=== PATIENT | female | born 1940 | race Caucasian/White ===

== ENCOUNTER → 2017-02-15 | Outpatient (CLI) | payer OTHER ==
[2016-06-06 16:15] VITALS: BP 127/68
[2017-02-15 10:37] LABS: BASOPHILS % (AUTO) 0.7 % (0.2-1.0); EOSINOPHILS # (AUTO) 0.3 x10^3/uL (0.0-0.2); EOSINOPHILS % (AUTO) 4.2 % (0.9-2.9); HEMATOCRIT 36.7 % (36.0-47.0); HEMOGLOBIN 12.1 g/dL (12.0-16.0); LYMPHOCYTES # (AUTO) 1.4 X10^3/uL (1.3-2.9); LYMPHOCYTES % (AUTO) 20.2 % (21.0-51.0); MEAN CORPUSCULAR HEMOGLOBIN 31.2 pg (27.0-34.0); MEAN CORPUSCULAR HGB CONC 32.9 g/dL (33.0-35.0); MEAN CORPUSCULAR VOLUME 94.6 fL (80.0-100.0); MEAN PLATELET VOLUME 8.8 fL (7.4-11.0); MONOCYTES # (AUTO) 0.6 x10^3/uL (0.3-0.8); MONOCYTES % (AUTO) 8.1 % (0.0-13.0); NEUTROPHILS # (AUTO) 4.6 x10^3/uL (2.2-4.8); NEUTROPHILS % (AUTO) 66.8 % (42.0-75.0); PLATELET COUNT 220 X10^3/uL (150.0-450.0); RED BLOOD COUNT 3.88 X10^6/uL (3.5-5.4); RED CELL DISTRIBUTION WIDTH 12.6 % (11.6-16.5); RETICULOCYTE % 1.52 % (0.8-2.2); WHITE BLOOD COUNT 6.8 X10^3/uL (3.6-10.0)
[2017-02-15 10:39] LABS: BLOOD UREA NITROGEN 20 mg/dL (7-18); CALCIUM 8.7 mg/dL (8.5-10.1); CARBON DIOXIDE 28.1 mmol/L (21-32); CHLORIDE 107 mmol/L (98-107); COR NA(FOR HYPERGLY) 145 mmol/L (136-145); GLUCOSE 179 mg/dL (65-99); SODIUM 143 mmol/L (136-145); eGFR BLACK RACES > 60 (>60); eGFR NON BLACK RACES 58 (>60)
[2017-02-18 06:43] LABS: METHYLMALONIC ACID 0.46 umol/L (0.00-0.40)
== END ==
LOC: LAB 09:50
PROVIDERS: ATTEND Nurse Practitioner Family
DX: I10 Essential (primary) hypertension (principal); D64.9 Anemia, unspecified; E11.9 Type 2 diabetes mellitus without complications; Z79.899 Other long term (current) drug therapy
CPT/HCPCS: 36415; 80048; 82607; 82615; 82746; 83036; 83918; 85025; 85045; 86256; 86340

== ENCOUNTER → 2017-05-05 | Outpatient (CLI) | payer OTHER ==
[2016-06-06 16:15] VITALS: BP 127/68
[2017-05-05 12:14] LABS: BASOPHILS % (AUTO) 0.5 % (0.2-1.0); EOSINOPHILS # (AUTO) 0.4 x10^3/uL (0.0-0.2); EOSINOPHILS % (AUTO) 4.7 % (0.9-2.9); HEMATOCRIT 33.2 % (36.0-47.0); HEMOGLOBIN 11.5 g/dL (12.0-16.0); LYMPHOCYTES % (AUTO) 12.4 % (21.0-51.0); MEAN CORPUSCULAR HEMOGLOBIN 32.7 pg (27.0-34.0); MEAN CORPUSCULAR HGB CONC 34.6 g/dL (33.0-35.0); MEAN CORPUSCULAR VOLUME 94.5 fL (80.0-100.0); MEAN PLATELET VOLUME 8.4 fL (7.4-11.0); MONOCYTES # (AUTO) 0.7 x10^3/uL (0.3-0.8); MONOCYTES % (AUTO) 8.2 % (0.0-13.0); NEUTROPHILS # (AUTO) 6.2 x10^3/uL (2.2-4.8); NEUTROPHILS % (AUTO) 74.2 % (42.0-75.0); PLATELET COUNT 222 X10^3/uL (150.0-450.0); RED BLOOD COUNT 3.52 X10^6/uL (3.5-5.4); RED CELL DISTRIBUTION WIDTH 12.3 % (11.6-16.5); WHITE BLOOD COUNT 8.3 X10^3/uL (3.6-10.0)
[2017-05-05 12:27] LABS: ALBUMIN 3.5 g/dL (3.4-5.0); BLOOD UREA NITROGEN 32 mg/dL (7-18); CALCIUM 8.8 mg/dL (8.5-10.1); CARBON DIOXIDE 22.7 mmol/L (21-32); CHLORIDE 108 mmol/L (98-107); COR NA(FOR HYPERGLY) 143 mmol/L (136-145); CREATININE 0.99 mg/dL (0.55-1.02); GLUCOSE 151 mg/dL (65-99); SODIUM 142 mmol/L (136-145); URIC ACID 6.1 mg/dL (2.6-6.0); eGFR BLACK RACES > 60 (>60); eGFR NON BLACK RACES 58 (>60)
[2017-05-10 05:54] LABS: ALDOSTERONE 9.3 ng/dL
[2017-05-10 05:55] LABS: RENIN ACTIVITY 1.2 ng/mL/hr
[2017-05-11 06:27] LABS: METANEPHRINE < 0.10; NORMETANEPHRINE 0.75
== END ==
LOC: LAB 11:47
PROVIDERS: ATTEND Internal Medicine
DX: I12.9 Hypertensive chronic kidney disease with stage 1 through stage 4 chronic kidney disease, or unspecified chronic kidney disease (principal); N18.3 Chronic kidney disease, stage 3 (moderate)
CPT/HCPCS: 36415; 80069; 82088; 83835; 84244; 84550; 85025

== ENCOUNTER → 2017-05-18 | Outpatient (CLI) | payer OTHER ==
[2016-06-06 16:15] VITALS: BP 127/68
[2017-05-18 10:36] LABS: HEMOGLOBIN A1C 7.3 % (4.5-6.2)
[2017-05-18 10:40] LABS: CHOL/HDL RATIO 3.1 (0.0-5.0); CHOLESTEROL 127 mg/dL (0-200); HDL CHOLESTEROL 41 mg/dL (40-60); TRIGLYCERIDES 113 mg/dL (0-150)
== END ==
LOC: LAB 09:47
PROVIDERS: ATTEND Nurse Practitioner Family
DX: E11.69 Type 2 diabetes mellitus with other specified complication (principal); D64.89 Other specified anemias; D51.0 Vitamin B12 deficiency anemia due to intrinsic factor deficiency
CPT/HCPCS: 36415; 80061; 82607; 83036; 83918

== ENCOUNTER 2017-07-24 14:14 | Inpatient (IN) | payer OTHER ==
--- NOTE | 2017-07-24 14:33 | DR.GENAD ---
HPI - PCP Primary Care Physician: JUANCHO - Complaint/Symptoms Chief Complaint:: PATIENT STATED SHE HAS BEEN VOMITING SINCE LAST NIGHT. SHE STATED IT LOOKED BLACK AND TARY. - Nurses notes reviewed Nurses Notes Review: Yes - Source History Provided: Patient - Mode of Arrival Mode of Arrival: EMS - Timing Onset of Chief Complaint: 07/23/17 - Severity Severity: Moderate PMH - PMH Past Medical History: Yes Past Medical History: Diabetes, Dyslipidemia, Hypertension Past Surgical History: No Surgical History: Cholecystectomy - Family History History of Family Medical Conditions: No Family Medical History: Diabetes Mellitus, [place], Heart Failure, Hypertension - Social History Does patient currently use any type of tobacco product: No Have you used tobacco products in the last 12 months: No Type of Tobacco Use: None Does any household member use tobacco: No Alcohol Use: None Do you use any recreational Drugs:: No Lives With: Family Lives Where: Home - infectious screening In the last 2 months have you had wt loss of >10#?: NO Have you had fever, night sweats or hemotysis?: No Have you traveled outside the country in the last 6 months?: No Isolation: Standard PE - Vital Signs Vitals: Temperature 97.9 F Pulse Rate [Standing] 51 Pulse Rate [Sitting] 67 Pulse Rate [Lying] 66 Pulse Rate 64 Respiratory Rate 16 Blood Pressure [Right Arm] 127/68 Blood Pressure [Left Arm] 110/51 Blood Pressure [Standing] 75/47 Blood Pressure [Sitting] 94/58 Blood Pressure [Lying] 110/58 Blood Pressure 126/58 O2 Sat by Pulse Oximetry 98 ROR - Labs Reviewed Result Diagrams: 07/24/17 14:40 07/24/17 14:40 Laboratory: WBC 6.6 X10^3/uL (3.6-10.0) 07/24/17 14:40 RBC 3.32 X10^6/uL (3.5-5.4) L 07/24/17 14:40 Hgb 10.7 g/dL (12.0-16.0) L 07/24/17 14:40 Hct 31.6 % (36.0-47.0) L 07/24/17 14:40 MCV 95.1 fL (80.0-100.0) 07/24/17 14:40 MCH 32.2 pg (27.0-34.0) 07/24/17 14:40 MCHC 33.8 g/dL (33.0-35.0) 07/24/17 14:40 RDW 12.6 % (11.6-16.5) 07/24/17 14:40 Plt Count 185 X10^3/uL (150.0-450.0) 07/24/17 14:40 MPV 8.4 fL (7.4-11.0) 07/24/17 14:40 Neut % 71.5 % (42.0-75.0) 07/24/17 14:40 Lymph % 18.6 % (21.0-51.0) L 07/24/17 14:40 [place] % 7.9 % (0.0-13.0) 07/24/17 14:40 Eos % 1.5 % (0.9-2.9) 07/24/17 14:40 Baso % 0.5 % (0.2-1.0) 07/24/17 14:40 Neut # 4.7 x10^3/uL (2.2-4.8) 07/24/17 14:40 Lymph # 1.2 X10^3/uL (1.3-2.9) L 07/24/17 14:40 [place] # 0.5 x10^3/uL (0.3-0.8) 07/24/17 14:40 Eos # 0.1 x10^3/uL (0.0-0.2) 07/24/17 14:40 Baso # 0.0 X10^3/uL (0.0-0.1) 07/24/17 14:40 Absolute Nucleated RBC 0.0 /100WBC 07/24/17 14:40 Sodium 142 mmol/L (136-145) 07/24/17 14:40 Corrected Sodium TNP 07/24/17 14:40 Potassium 5.2 mmol/L (3.5-5.1) H 07/24/17 14:40 Chloride 109 mmol/L (98-107) H 07/24/17 14:40 Carbon Dioxide 24.5 mmol/L (21-32) 07/24/17 14:40 BUN 35 mg/dL (7-18) H 07/24/17 14:40 Creatinine 1.85 mg/dL (0.55-1.02) H 07/24/17 14:40 Est GFR (MDRD) Af Amer 34 (>60) L 07/24/17 14:40 Est GFR (MDRD) Non-Af 28 (>60) L 07/24/17 14:40 Glucose 58 mg/dL (65-99) L 07/24/17 14:40 Calcium 8.3 mg/dL (8.5-10.1) L 07/24/17 14:40 Corrected Calcium 8.9 mg/dL (8.5-10.1) 07/24/17 14:40 Total Bilirubin 0.40 mg/dL (0.2-1.0) 07/24/17 14:40 AST 17 Units/L (15-37) 07/24/17 14:40 ALT 26 Units/L (12-78) 07/24/17 14:40 Alkaline Phosphatase 60 Units/L (46-116) 07/24/17 14:40 Creatine Kinase 46 Units/L (26-192) 07/24/17 14:40 CK-MB (CK-2) < 1.0 ng/mL (0-4.0) 07/24/17 14:40 CK/CKMB % Calc 2.2 % (<4) 07/24/17 14:40 Troponin I < 0.02 ng/mL (0-1.5) 07/24/17 14:40 Total Protein 6.8 g/dL (6.4-8.2) 07/24/17 14:40 Albumin 3.3 g/dL (3.4-5.0) L 07/24/17 14:40 Globulin 3.5 g/dL (2.5-4.5) 07/24/17 14:40 Albumin/Globulin Ratio 0.9 Ratio (1.1-2.1) L 07/24/17 14:40 Stool Description Ifob collection tube 07/24/17 16:53 Stl Occult Blood (IFOB) Negative (NEGATIVE) 07/24/17 16:53 - Discharge Plan Condition: Stable - Follow ups/Referrals Follow ups/Referrals: RODRI DAWKINS [Primary Care Provider] - 3 days - Instructions
[2017-07-24 14:50] LABS: BASOPHILS % (AUTO) 0.5 % (0.2-1.0); EOSINOPHILS # (AUTO) 0.1 x10^3/uL (0.0-0.2); EOSINOPHILS % (AUTO) 1.5 % (0.9-2.9); HEMATOCRIT 31.6 % (36.0-47.0); HEMOGLOBIN 10.7 g/dL (12.0-16.0); LYMPHOCYTES # (AUTO) 1.2 X10^3/uL (1.3-2.9); LYMPHOCYTES % (AUTO) 18.6 % (21.0-51.0); MEAN CORPUSCULAR HEMOGLOBIN 32.2 pg (27.0-34.0); MEAN CORPUSCULAR HGB CONC 33.8 g/dL (33.0-35.0); MEAN CORPUSCULAR VOLUME 95.1 fL (80.0-100.0); MEAN PLATELET VOLUME 8.4 fL (7.4-11.0); MONOCYTES # (AUTO) 0.5 x10^3/uL (0.3-0.8); MONOCYTES % (AUTO) 7.9 % (0.0-13.0); NEUTROPHILS # (AUTO) 4.7 x10^3/uL (2.2-4.8); NEUTROPHILS % (AUTO) 71.5 % (42.0-75.0); PLATELET COUNT 185 X10^3/uL (150.0-450.0); RED BLOOD COUNT 3.32 X10^6/uL (3.5-5.4); RED CELL DISTRIBUTION WIDTH 12.6 % (11.6-16.5); WHITE BLOOD COUNT 6.6 X10^3/uL (3.6-10.0)
[2017-07-24 15:06] LABS: BLOOD UREA NITROGEN 35 mg/dL (7-18); CALCIUM 8.3 mg/dL (8.5-10.1); CARBON DIOXIDE 24.5 mmol/L (21-32); CHLORIDE 109 mmol/L (98-107); CREATININE 1.85 mg/dL (0.55-1.02); GLUCOSE 58 mg/dL (65-99); SODIUM 142 mmol/L (136-145); TROPONIN I < 0.02 ng/mL (0-1.5); eGFR BLACK RACES 34 (>60); eGFR NON BLACK RACES 28 (>60)
[2017-07-24 15:11] LABS: ALANINE AMINOTRANSFERASE 26 Units/L (12-78); ALBUMIN 3.3 g/dL (3.4-5.0); ALKALINE PHOSPHATASE 60 Units/L (46-116); ASPARTATE AMINO TRANSFERASE 17 Units/L (15-37); COR CA(FOR HYPOALB) 8.9 mg/dL (8.5-10.1); CREATINE KINASE 46 Units/L (26-192); CREATINE KINASE MB < 1.0 ng/mL (0-4.0); TOTAL PROTEIN 6.8 g/dL (6.4-8.2)
[2017-07-24 15:14] LABS: CKMB % 2.2 % (<4)
--- NOTE | 2017-07-24 15:36 | RAD ---
HISTORY: Nausea, vomiting Study: Single-view chest Comparison: June 06, 2016 Findings: There is aortic atherosclerosis. The patient is rotated. There are low lung volumes with mild chronic elevation of the left hemidiaphragm. The cardiac silhouette is unremarkable. The lungs are clear w ithout focal mass or consolidation. There is no effusion or pneumothorax. The bony thorax is grossl y unremarkable. IMPRESSION: No acute cardiopulmonary disease. Reported By:
[2017-07-24] MEDS ORDERED: NS 1000 ML 1,000 ML ONE (15:44)
[2017-07-24] MEDS ORDERED: NS 1000 ML 1,000 ML IV ONE (15:45)
[2017-07-24] MEDS ORDERED: NS 100 ML IV 100 ML IV ONE (16:56)
[2017-07-24] MEDS ORDERED: PROTONIX INJ 40 MG VIAL ONE (16:56)
[2017-07-24 20:55] LABS: CREATINE KINASE 43 Units/L (26-192); CREATINE KINASE MB < 1.0 ng/mL (0-4.0); TROPONIN I < 0.02 ng/mL (0-1.5)
[2017-07-24 21:03] LABS: CKMB % 2.3 % (<4)
[2017-07-24 21:05] VITALS: BMI 27.6
[2017-07-24] MEDS: NS 1000 ML 1,000 ML IV SCH (21:57)
[2017-07-24 22:30] LABS: BILIRUBIN,URINE 1+ (NEGATIVE); BLOOD/HEMOGLOBIN,URINE 1+ (NEGATIVE); GLUCOSE, URINE NEGATIVE (NEGATIVE); KETONES,URINE 1+ (NEGATIVE); LEUKOCYTE ESTERASE ,URINE 3+ (NEGATIVE); NITRITES,URINE NEGATIVE (NEGATIVE); PROTEIN,URINE NEGATIVE (NEGATIVE); UROBILINOGEN,URINE 1+ (NORMAL)
[2017-07-24 23:17] LABS: APPEARANCE,URINE SLIGHTLY HAZY (CLEAR); BACTERIA,URINE TRACE /HPF (NEGATIVE); COLOR,URINE YELLOW (YELLOW); HYALINE CASTS, URINE FEW /LPF (NEGATIVE); RBC,URINE 0-3 /HPF (NEGATIVE); SQUAMOUS EPITHELIAL CELL,UR MODERATE /HPF (NEGATIVE)
[2017-07-25] MEDS: PROTONIX INJ 40 MG VIAL 80 MG in NS 100 ML IV 80 ML IV SCH ×4 (01:33→12:10)
[2017-07-25] MEDS: NS 1000 ML 1,000 ML IV SCH ×4 (01:33→19:51)
[2017-07-25 04:58] LABS: ALANINE AMINOTRANSFERASE 23 Units/L (12-78); ALBUMIN 2.9 g/dL (3.4-5.0); ALKALINE PHOSPHATASE 55 Units/L (46-116); ASPARTATE AMINO TRANSFERASE 16 Units/L (15-37); BLOOD UREA NITROGEN 27 mg/dL (7-18); CALCIUM 7.7 mg/dL (8.5-10.1); CARBON DIOXIDE 25.1 mmol/L (21-32); CHLORIDE 111 mmol/L (98-107); CKMB % 2.3 % (<4); COR CA(FOR HYPOALB) 8.6 mg/dL (8.5-10.1); COR NA(FOR HYPERGLY) 144 mmol/L (136-145); CREATINE KINASE 44 Units/L (26-192); CREATINE KINASE MB < 1.0 ng/mL (0-4.0); GLUCOSE 185 mg/dL (65-99); SODIUM 142 mmol/L (136-145); TOTAL PROTEIN 6.2 g/dL (6.4-8.2); TROPONIN I < 0.02 ng/mL (0-1.5); eGFR BLACK RACES 51 (>60); eGFR NON BLACK RACES 42 (>60)
[2017-07-25 05:12] LABS: BASOPHILS % (AUTO) 0.7 % (0.2-1.0); EOSINOPHILS # (AUTO) 0.1 x10^3/uL (0.0-0.2); EOSINOPHILS % (AUTO) 2.4 % (0.9-2.9); HEMOGLOBIN 10.1 g/dL (12.0-16.0); LYMPHOCYTES # (AUTO) 1.4 X10^3/uL (1.3-2.9); LYMPHOCYTES % (AUTO) 28.2 % (21.0-51.0); MEAN CORPUSCULAR HEMOGLOBIN 32.4 pg (27.0-34.0); MEAN CORPUSCULAR HGB CONC 33.7 g/dL (33.0-35.0); MEAN CORPUSCULAR VOLUME 96.3 fL (80.0-100.0); MEAN PLATELET VOLUME 9.2 fL (7.4-11.0); MONOCYTES # (AUTO) 0.4 x10^3/uL (0.3-0.8); MONOCYTES % (AUTO) 8.6 % (0.0-13.0); NEUTROPHILS % (AUTO) 60.1 % (42.0-75.0); PLATELET COUNT 159 X10^3/uL (150.0-450.0); RED BLOOD COUNT 3.12 X10^6/uL (3.5-5.4); RED CELL DISTRIBUTION WIDTH 12.6 % (11.6-16.5)
[2017-07-25] MEDS ORDERED: ROCEPHIN VIAL 1 GM ONE (15:40)
[2017-07-25] MEDS ORDERED: NS 50 ML IV + SPIKE MINIBAG* 50 ML IV ONE (15:40)
[2017-07-25] MEDS: ROCEPHIN VIAL 1 GM 1 GM in NS 50 ML IV + SPIKE MINIBAG* 50 ML IV SCH (15:42)
[2017-07-25] MEDS: NORMODYNE INJ 20 MG VIAL IVP PRN ×2 (20:08→20:44)
[2017-07-26] MEDS: NS 1000 ML 1,000 ML IV SCH (04:09)
[2017-07-26] MEDS: NORMODYNE INJ 20 MG VIAL IVP PRN (04:09)
[2017-07-26 05:41] LABS: ALANINE AMINOTRANSFERASE 25 Units/L (12-78); ALBUMIN 3.5 g/dL (3.4-5.0); ALKALINE PHOSPHATASE 65 Units/L (46-116); ASPARTATE AMINO TRANSFERASE 18 Units/L (15-37); BLOOD UREA NITROGEN 10 mg/dL (7-18); CALCIUM 8.4 mg/dL (8.5-10.1); CARBON DIOXIDE 25.2 mmol/L (21-32); CHLORIDE 109 mmol/L (98-107); COR NA(FOR HYPERGLY) 143 mmol/L (136-145); CREATININE 0.91 mg/dL (0.55-1.02); GLUCOSE 118 mg/dL (65-99); SODIUM 143 mmol/L (136-145); TOTAL PROTEIN 7.2 g/dL (6.4-8.2); eGFR BLACK RACES > 60 (>60); eGFR NON BLACK RACES > 60 (>60)
[2017-07-26 05:53] LABS: BASOPHILS % (AUTO) 0.7 % (0.2-1.0); EOSINOPHILS # (AUTO) 0.3 x10^3/uL (0.0-0.2); EOSINOPHILS % (AUTO) 4.2 % (0.9-2.9); HEMATOCRIT 35.9 % (36.0-47.0); HEMOGLOBIN 11.9 g/dL (12.0-16.0); LYMPHOCYTES # (AUTO) 1.6 X10^3/uL (1.3-2.9); LYMPHOCYTES % (AUTO) 26.8 % (21.0-51.0); MEAN CORPUSCULAR HEMOGLOBIN 32.1 pg (27.0-34.0); MEAN CORPUSCULAR HGB CONC 33.3 g/dL (33.0-35.0); MEAN CORPUSCULAR VOLUME 96.4 fL (80.0-100.0); MEAN PLATELET VOLUME 9.6 fL (7.4-11.0); MONOCYTES # (AUTO) 0.7 x10^3/uL (0.3-0.8); MONOCYTES % (AUTO) 11.9 % (0.0-13.0); NEUTROPHILS # (AUTO) 3.5 x10^3/uL (2.2-4.8); NEUTROPHILS % (AUTO) 56.4 % (42.0-75.0); PLATELET COUNT 158 X10^3/uL (150.0-450.0); RED BLOOD COUNT 3.72 X10^6/uL (3.5-5.4); RED CELL DISTRIBUTION WIDTH 12.6 % (11.6-16.5); WHITE BLOOD COUNT 6.1 X10^3/uL (3.6-10.0)
[2017-07-26] MEDS: ROCEPHIN VIAL 1 GM 1 GM in NS 50 ML IV + SPIKE MINIBAG* 50 ML IV SCH (08:51)
[2017-07-26] MEDS ORDERED: PROTONIX TAB 40 MG PO SCH (09:00)
[2017-07-26 09:27] VITALS: BP 182/88
[2017-07-26] MEDS ORDERED: VASOTEC TAB 5 MG PO SCH (10:00)
== END 2017-07-26 10:15 | disposition home or self-care (01) | DRG 315 ==
LOC: ER 14:35 → MED/SURG 17:46
PROVIDERS: ADMIT Internal Medicine; ATTEND Internal Medicine
DX: I95.89 Other hypotension (principal); K92.2 Gastrointestinal hemorrhage, unspecified; E78.2 Mixed hyperlipidemia; I10 Essential (primary) hypertension; R11.2 Nausea with vomiting, unspecified; R94.31 Abnormal electrocardiogram [ECG] [EKG]; N39.0 Urinary tract infection, site not specified; K21.9 Gastro-esophageal reflux disease without esophagitis; E11.69 Type 2 diabetes mellitus with other specified complication
CPT/HCPCS: 36415; 71010; 80053; 81001; 82270; 82550; 82553; 82947; 84484; 85025; 87086; 93005; 93010; 94760; 96365; 99231; 99284; A4222; C9113; J0696; J3490

== ENCOUNTER 2017-07-27 20:36 | Emergency (ER) | payer OTHER ==
[2017-07-27 20:44] VITALS: BMI 29.2
--- NOTE | 2017-07-27 21:14 | DR.GENAD ---
HPI - PCP Primary Care Physician: JUANCHO - Complaint/Symptoms Chief Complaint Doctors Comments: Denies symptoms at this time. BP found low when TECHNICAL CONSULTANT checked blood pressure. Chief Complaint:: LOW BLOOD PRESSURE - Nurses notes reviewed Nurses Notes Review: Yes - Source History Provided: Patient - Mode of Arrival Mode of Arrival: Ambulatory - Timing Onset of Chief Complaint: 07/27/17 Came on: Gradually - Duration Duration: Constant Duration: Hours - Location Location: generalized - Severity Severity: Mild - Modifying Factors Worsens:: BP meds - Associated Signs and Symptoms Associated Signs and Symptoms: none <ELÍAS ALFRED - Last Filed: 07/27/17 22:01> PMH - PMH Past Medical History: Yes Past Medical History: Diabetes, Dyslipidemia, Hypertension Past Surgical History: Yes Surgical History: Cholecystectomy - Family History History of Family Medical Conditions: Yes Family Medical History: Diabetes Mellitus, [place], Heart Failure, Hypertension - Social History Does patient currently use any type of tobacco product: No Have you used tobacco products in the last 12 months: No Type of Tobacco Use: None Does any household member use tobacco: No Alcohol Use: None Do you use any recreational Drugs:: No Lives With: Family Lives Where: Home - infectious screening In the last 2 months have you had wt loss of >10#?: NO Have you had fever, night sweats or hemotysis?: No Have you traveled outside the country in the last 6 months?: No Isolation: Standard <ELÍAS ALFRED - Last Filed: 07/27/17 22:01> ROS - Review of Systems Constitutional: No Symptoms Reported Eyes: No Symptoms Reported ENTM: No Symptoms Reported Respiratoy: No Symptoms Reported Cardiovascular: No Symptoms Reported Gastrointestinal/Abdominal: No Symptoms Reported Genitourinary: No Symptoms Reported Neurological: No Symptoms Reported Musculoskeletal: No Symptoms Reported Integumentary: No Symptoms Reported Hematologic/Lymphatic: No Symptoms Reported Endocrine: No Symptoms Reported Psychiatric: No Symptoms Reported All Other Systems: Reviewed and Negative <ELÍAS ALFRED - Last Filed: 07/27/17 22:01> PE - General Limitations: No Limitations General Appearance: Alert, In No Apparent Distress - Head Head Exam: Normal Inspection - Eyes Eye exam: Normal Appearance, EOMI. negative: Scleral Icterus, Conjunctival Injection - ENT ENT Exam: Normal Exam - Neck Neck Exam: Normal Inspection, Full ROM, Trachea Midline - Chest Chest Inspection: Normal Inspection, Symmetric Chest Wall Rise - Respiratory Respiratory Exam: Normal Lung Sounds Bilat. negative: Accessory Muscle Use, Respiratory Distress Respiratory Exam: Bilateral Clear to Auscultation - Cardiovascular Cardiovascular Exam: Regular Rate - Extremities Extremities Exam: Normal Inspection, Full ROM - Neurologic Neurological Exam: Alert, Oriented X3, CN II-XII Intact - Psychiatric Psychiatric Exam: Normal Affect - Skin Skin Exam: Intact, Normal Color <ELÍAS ALFRED - Last Filed: 07/27/17 22:01> - Vital Signs Vitals: Temperature 97.5 F Pulse Rate 92 Respiratory Rate 16 Blood Pressure [Right Arm] 180/90 Blood Pressure [Left Arm] 144/76 Blood Pressure [Standing] 75/47 Blood Pressure [Sitting] 94/58 Blood Pressure [Lying] 110/58 Blood Pressure 88/64 O2 Sat by Pulse Oximetry 97 ROR - Labs Reviewed Result Diagrams: 07/27/17 21:18 <ELÍAS ALFRED - Last Filed: 07/27/17 22:01> - Labs Reviewed Result Diagrams: 07/27/17 21:18 <ILENE MACIEL - Last Filed: 07/27/17 23:40> - Labs Reviewed Laboratory: Sodium 142 mmol/L (136-145) 07/27/17 21:18 Corrected Sodium 144 mmol/L (136-145) 07/27/17 21:18 Potassium 4.3 mmol/L (3.5-5.1) 07/27/17 21:18 Chloride 106 mmol/L (98-107) 07/27/17 21:18 Carbon Dioxide 23.5 mmol/L (21-32) 07/27/17 21:18 BUN 22 mg/dL (7-18) H 07/27/17 21:18 Creatinine 2.25 mg/dL (0.55-1.02) H 07/27/17 21:18 Est GFR (MDRD) Af Amer 27 (>60) L 07/27/17 21:18 Est GFR (MDRD) Non-Af 23 (>60) L 07/27/17 21:18 Glucose 183 mg/dL (65-99) H 07/27/17 21:18 Calcium 8.5 mg/dL (8.5-10.1) 07/27/17 21:18 Specimen Type Clean catch urine 07/27/17 22:40 Urine Color Dark yellow (YELLOW) 07/27/17 22:40 Urine Appearance Slightly hazy (CLEAR) 07/27/17 22:40 Urine pH 5.0 (5.0 - 8.0) 07/27/17 22:40 Ur Specific [place] 1.025 (1.000-1.030) 07/27/17 22:40 Urine Protein 2+ (NEGATIVE) 07/27/17 22:40 Urine Glucose (UA) Negative (NEGATIVE) 07/27/17 22:40 Urine Ketones 1+ (NEGATIVE) 07/27/17 22:40 Urine Occult Blood Negative (NEGATIVE) 07/27/17 22:40 Urine Nitrite Negative (NEGATIVE) 07/27/17 22:40 Urine Bilirubin 1+ (NEGATIVE) 07/27/17 22:40 Urine Urobilinogen 1+ (NORMAL) 07/27/17 22:40 Ur Leukocyte Esterase 2+ (NEGATIVE) 07/27/17 22:40 Urine RBC None seen /HPF (NEGATIVE) 07/27/17 22:40 Urine WBC 8-10 /HPF (NEGATIVE) 07/27/17 22:40 Ur Squamous Epith Cells Rare /HPF (NEGATIVE) 07/27/17 22:40 Urine Bacteria 1+ /HPF (NEGATIVE) 07/27/17 22:40 Hyaline Casts Few /LPF (NEGATIVE) 07/27/17 22:40 Ur Culture Indicated? Yes/culture set up 07/27/17 22:40 <ELÍAS ALFRED - Last Filed: 07/27/17 22:01> <ILENE MACIEL - Last Filed: 07/27/17 23:40> - Diagnosis Discharge Problem: Hypotension, unspecified Qualifiers: Hypotension type: unspecified hypotension type Qualified Code(s): I95.9 - Hypotension, unspecified - Discharge Plan Condition: Stable - Follow ups/Referrals Follow ups/Referrals: RODRI DAWKINS [Primary Care Provider] - 3 days - Instructions
[2017-07-27 21:32] LABS: CALCIUM 8.5 mg/dL (8.5-10.1); CARBON DIOXIDE 23.5 mmol/L (21-32); CREATININE 2.25 mg/dL (0.55-1.02)
[2017-07-27] MEDS ORDERED: NS 500 ML IV 500 ML IV ONE (21:45)
[2017-07-27] MEDS ORDERED: NS 1000 ML 1,000 ML ONE (21:53)
[2017-07-27 22:50] LABS: BILIRUBIN,URINE 1+ (NEGATIVE); BLOOD/HEMOGLOBIN,URINE NEGATIVE (NEGATIVE); GLUCOSE, URINE NEGATIVE (NEGATIVE); KETONES,URINE 1+ (NEGATIVE); LEUKOCYTE ESTERASE ,URINE 2+ (NEGATIVE); NITRITES,URINE NEGATIVE (NEGATIVE); PROTEIN,URINE 2+ (NEGATIVE); UROBILINOGEN,URINE 1+ (NORMAL)
[2017-07-27 22:57] LABS: APPEARANCE,URINE SLIGHTLY HAZY (CLEAR); BACTERIA,URINE 1+ /HPF (NEGATIVE); COLOR,URINE DARK YELLOW (YELLOW); HYALINE CASTS, URINE FEW /LPF (NEGATIVE); RBC,URINE NONE SEEN /HPF (NEGATIVE); SQUAMOUS EPITHELIAL CELL,UR RARE /HPF (NEGATIVE)
[2017-07-27 23:01] VITALS: BP 144/76
== END 2017-07-27 23:59 | disposition home or self-care (01) ==
LOC: ER 20:48
DX: I95.9 Hypotension, unspecified (principal)
CPT/HCPCS: 36415; 80048; 81001; 87086; 96365; 96367; 99283; A4222

== ENCOUNTER → 2017-07-29 | Outpatient (CLI) | payer OTHER ==
[2017-07-27 23:01] VITALS: BP 144/76
[2017-07-29 10:39] LABS: BASOPHILS % (AUTO) 0.8 % (0.2-1.0); EOSINOPHILS # (AUTO) 0.2 x10^3/uL (0.0-0.2); EOSINOPHILS % (AUTO) 4.5 % (0.9-2.9); HEMATOCRIT 33.5 % (36.0-47.0); HEMOGLOBIN 11.2 g/dL (12.0-16.0); LYMPHOCYTES # (AUTO) 1.4 X10^3/uL (1.3-2.9); LYMPHOCYTES % (AUTO) 27.1 % (21.0-51.0); MEAN CORPUSCULAR HEMOGLOBIN 31.8 pg (27.0-34.0); MEAN CORPUSCULAR HGB CONC 33.6 g/dL (33.0-35.0); MEAN CORPUSCULAR VOLUME 94.8 fL (80.0-100.0); MEAN PLATELET VOLUME 8.9 fL (7.4-11.0); MONOCYTES # (AUTO) 0.4 x10^3/uL (0.3-0.8); MONOCYTES % (AUTO) 7.9 % (0.0-13.0); NEUTROPHILS # (AUTO) 3.1 x10^3/uL (2.2-4.8); NEUTROPHILS % (AUTO) 59.7 % (42.0-75.0); PLATELET COUNT 186 X10^3/uL (150.0-450.0); RED BLOOD COUNT 3.53 X10^6/uL (3.5-5.4); RED CELL DISTRIBUTION WIDTH 12.7 % (11.6-16.5); WHITE BLOOD COUNT 5.1 X10^3/uL (3.6-10.0)
[2017-07-29 10:47] LABS: HEMOGLOBIN A1C 7.1 % (4.5-6.2)
[2017-07-29 10:51] LABS: ALBUMIN 3.5 g/dL (3.4-5.0); BLOOD UREA NITROGEN 24 mg/dL (7-18); C-REACTIVE PROTEIN < 0.50 mg/L (0-3.0); CALCIUM 8.5 mg/dL (8.5-10.1); CARBON DIOXIDE 26.7 mmol/L (21-32); CHLORIDE 107 mmol/L (98-107); CHOL/HDL RATIO 2.9 (0.0-5.0); CHOLESTEROL 116 mg/dL (0-200); COR NA(FOR HYPERGLY) 141 mmol/L (136-145); CREATININE 1.31 mg/dL (0.55-1.02); HDL CHOLESTEROL 40 mg/dL (40-60); PHOSPHORUS 3.4 mg/dL (2.6-4.7); SODIUM 140 mmol/L (136-145); TRIGLYCERIDES 95 mg/dL (0-150); URIC ACID 7.2 mg/dL (2.6-6.0); eGFR BLACK RACES 51 (>60); eGFR NON BLACK RACES 42 (>60)
[2017-07-29 10:54] LABS: CREATININE,URINE 170.16 mg/dL (29-226); MICROALBUMIN,URINE 7.8 mg/L
[2017-07-29 10:55] LABS: IRON 69 ug/dL (50-175); TOTAL IRON BINDING CAPACITY 261 ug/dL (250-450)
[2017-07-29 11:19] LABS: ERYTHROCYTE SEDIMENTATION RATE 87 MM/HOUR (0-20)
== END | disposition home or self-care (01) ==
LOC: LAB 10:15
PROVIDERS: ATTEND Nurse Practitioner Family
DX: N18.9 Chronic kidney disease, unspecified (principal); I12.9 Hypertensive chronic kidney disease with stage 1 through stage 4 chronic kidney disease, or unspecified chronic kidney disease; D64.89 Other specified anemias; M17.0 Bilateral primary osteoarthritis of knee; E11.21 Type 2 diabetes mellitus with diabetic nephropathy; R94.4 Abnormal results of kidney function studies; E11.65 Type 2 diabetes mellitus with hyperglycemia; R82.99 Other abnormal findings in urine
CPT/HCPCS: 36415; 80061; 80069; 82043; 83036; 83540; 83550; 84550; 85025; 85652; 86140

== ENCOUNTER 2017-09-10 15:40 | Emergency (ER) | payer OTHER ==
[2017-09-10 15:52] VITALS: BMI 27.6
--- NOTE | 2017-09-10 16:51 | DR.GENAD ---
HPI - PCP Primary Care Physician: Padilla - Complaint/Symptoms Chief Complaint Doctors Comments: Review of record shows that patient had prerenal failure. She is followed by a electro optics engineer. Chief Complaint:: "I fell earlier today and also about 3 weeks ago. It usually happens when I bend over for something. I just want to figure out why I keep falling. I have a tendancy of getting dehydrated, so I wanted to make sure that wasn't what was going on." - Source History Provided: Patient - Mode of Arrival Mode of Arrival: Ambulatory - Timing Onset of Chief Complaint: 09/10/17 PMH - PMH Past Medical History: Yes Past Medical History: Diabetes, Dyslipidemia, Hypertension Past Surgical History: Yes Surgical History: Cholecystectomy - Family History History of Family Medical Conditions: Yes Family Medical History: Diabetes Mellitus, [place], Heart Failure, Hypertension - Social History Does patient currently use any type of tobacco product: No Have you used tobacco products in the last 12 months: No Type of Tobacco Use: None Does any household member use tobacco: No Alcohol Use: None Do you use any recreational Drugs:: No Lives With: Family Lives Where: Home - infectious screening In the last 2 months have you had wt loss of >10#?: NO Have you had fever, night sweats or hemotysis?: No Have you traveled outside the country in the last 6 months?: No Isolation: Standard ROS - Review of Systems Constitutional: Diaphoresis Eyes: No Symptoms Reported ENTM: No Symptoms Reported Respiratoy: No Symptoms Reported Cardiovascular: No Symptoms Reported Gastrointestinal/Abdominal: No Symptoms Reported Genitourinary: No Symptoms Reported Neurological: No Symptoms Reported Musculoskeletal: No Symptoms Reported Integumentary: No Symptoms Reported Hematologic/Lymphatic: No Symptoms Reported Endocrine: No Symptoms Reported Psychiatric: No Symptoms Reported All Other Systems: Reviewed and Negative PE - Vital Signs Vitals: Temperature 97.9 F Pulse Rate [Left Brachial] 71 Pulse Rate 84 Respiratory Rate 18 Blood Pressure [Right Arm] 180/90 Blood Pressure [Left Arm] 131/60 Blood Pressure [Standing] 75/47 Blood Pressure [Sitting] 94/58 Blood Pressure [Lying] 110/58 Blood Pressure 80/58 O2 Sat by Pulse Oximetry 98 - General General Appearance: Alert, In No Apparent Distress - Head Head Exam: Normal Inspection, Atraumatic - Eyes Eye exam: Normal Appearance, PERRL, EOMI - ENT ENT Exam: Normal Exam External Ear Exam: Normal External Inspection TM/Canal Exam: Bilateral Normal Nose Exam: Normal Nose Exam Mouth Exam: Normal Inspection Throat Exam: Normal Inspection - Neck Neck Exam: Normal Inspection, Full ROM - Chest Chest Inspection: Normal Inspection - Respiratory Respiratory Exam: Normal Lung Sounds Bilat Respiratory Exam: Bilateral Clear to Auscultation - Cardiovascular Cardiovascular Exam: Regular Rate, Normal Rhythm - Abdominal Exam Abdominal Exam: Normal Inspection, Normal Bowel Sounds Abdominal Tenderness: negative: RUQ, RLQ, LUQ, LLQ, Epigastrium, Suprapubic, Diffuse, Mild, Moderate, Severe, Other - Back Back Exam: Normal Inspection, Full ROM - Neurologic Neurological Exam: Alert, Oriented X3, CN II-XII Intact - Psychiatric Psychiatric Exam: Normal Affect, Normal Mood, Depressed Course - Reevaluation 1st: Improved ROR - Labs Reviewed Result Diagrams: 09/10/17 17:14 09/10/17 17:14 Laboratory: WBC 6.6 X10^3/uL (3.6-10.0) 09/10/17 17:14 RBC 3.28 X10^6/uL (3.5-5.4) L 09/10/17 17:14 Hgb 10.5 g/dL (12.0-16.0) L 09/10/17 17:14 Hct 31.0 % (36.0-47.0) L 09/10/17 17:14 MCV 94.5 fL (80.0-100.0) 09/10/17 17:14 MCH 32.0 pg (27.0-34.0) 09/10/17 17:14 MCHC 33.8 g/dL (33.0-35.0) 09/10/17 17:14 RDW 12.8 % (11.6-16.5) 09/10/17 17:14 Plt Count 217 X10^3/uL (150.0-450.0) 09/10/17 17:14 MPV 9.4 fL (7.4-11.0) 09/10/17 17:14 Neut % 80.6 % (42.0-75.0) H 09/10/17 17:14 Lymph % 11.3 % (21.0-51.0) L 09/10/17 17:14 [place] % 5.7 % (0.0-13.0) 09/10/17 17:14 Eos % 1.8 % (0.9-2.9) 09/10/17 17:14 Baso % 0.6 % (0.2-1.0) 09/10/17 17:14 Neut # 5.4 x10^3/uL (2.2-4.8) H 09/10/17 17:14 Lymph # 0.8 X10^3/uL (1.3-2.9) L 09/10/17 17:14 [place] # 0.4 x10^3/uL (0.3-0.8) 09/10/17 17:14 Eos # 0.1 x10^3/uL (0.0-0.2) 09/10/17 17:14 Baso # 0.0 X10^3/uL (0.0-0.1) 09/10/17 17:14 Absolute Nucleated RBC 0.0 /100WBC 09/10/17 17:14 Sodium 145 mmol/L (136-145) 09/10/17 17:14 Corrected Sodium 146 mmol/L (136-145) H 09/10/17 17:14 Potassium 4.8 mmol/L (3.5-5.1) 09/10/17 17:14 Chloride 111 mmol/L (98-107) H 09/10/17 17:14 Carbon Dioxide 21.6 mmol/L (21-32) 09/10/17 17:14 BUN 44 mg/dL (7-18) H 09/10/17 17:14 Creatinine 2.49 mg/dL (0.55-1.02) H 09/10/17 17:14 Est GFR (MDRD) Af Amer 24 (>60) L 09/10/17 17:14 Est GFR (MDRD) Non-Af 20 (>60) L 09/10/17 17:14 Glucose 156 mg/dL (65-99) H 09/10/17 17:14 Calcium 8.6 mg/dL (8.5-10.1) 09/10/17 17:14 Corrected Calcium TNP 09/10/17 17:14 Total Bilirubin 0.30 mg/dL (0.2-1.0) 09/10/17 17:14 AST 17 Units/L (15-37) 09/10/17 17:14 ALT 18 Units/L (12-78) 09/10/17 17:14 Alkaline Phosphatase 96 Units/L (46-116) 09/10/17 17:14 C-Reactive Protein 1.50 mg/L (0-3.0) 09/10/17 17:14 Total Protein 7.1 g/dL (6.4-8.2) 09/10/17 17:14 Albumin 3.5 g/dL (3.4-5.0) 09/10/17 17:14 Globulin 3.6 g/dL (2.5-4.5) 09/10/17 17:14 Albumin/Globulin Ratio 1.0 Ratio (1.1-2.1) L 09/10/17 17:14 Amylase 68 Units/L (25-115) 09/10/17 17:14 Lipase 245 Units/L (73-393) 09/10/17 17:14 TSH 3rd Generation 1.344 uIU/mL (0.358-3.74) 09/10/17 17:14 - Diagnosis Discharge Problem: Dehydration, Prerenal renal failure Hypotension, unspecified Qualifiers: Hypotension type: other hypotension type Qualified Code(s): I95.89 - Other hypotension - Discharge Plan Condition: Stable - Follow ups/Referrals Follow ups/Referrals: VERNELL DAWKINS [Primary Care Provider] - 3 days - Instructions
[2017-09-10] MEDS ORDERED: NS 1000 ML 1,000 ML IV ONE (16:58)
[2017-09-10] MEDS ORDERED: NS 1000 ML 1,000 ML ONE (17:02)
[2017-09-10 17:25] LABS: BASOPHILS % (AUTO) 0.6 % (0.2-1.0); EOSINOPHILS # (AUTO) 0.1 x10^3/uL (0.0-0.2); EOSINOPHILS % (AUTO) 1.8 % (0.9-2.9); HEMOGLOBIN 10.5 g/dL (12.0-16.0); LYMPHOCYTES # (AUTO) 0.8 X10^3/uL (1.3-2.9); LYMPHOCYTES % (AUTO) 11.3 % (21.0-51.0); MEAN CORPUSCULAR HGB CONC 33.8 g/dL (33.0-35.0); MEAN CORPUSCULAR VOLUME 94.5 fL (80.0-100.0); MEAN PLATELET VOLUME 9.4 fL (7.4-11.0); MONOCYTES # (AUTO) 0.4 x10^3/uL (0.3-0.8); MONOCYTES % (AUTO) 5.7 % (0.0-13.0); NEUTROPHILS # (AUTO) 5.4 x10^3/uL (2.2-4.8); NEUTROPHILS % (AUTO) 80.6 % (42.0-75.0); PLATELET COUNT 217 X10^3/uL (150.0-450.0); RED BLOOD COUNT 3.28 X10^6/uL (3.5-5.4); RED CELL DISTRIBUTION WIDTH 12.8 % (11.6-16.5); WHITE BLOOD COUNT 6.6 X10^3/uL (3.6-10.0)
[2017-09-10 17:38] LABS: C-REACTIVE PROTEIN 1.5 mg/L (0-3.0)
[2017-09-10 17:46] LABS: ALANINE AMINOTRANSFERASE 18 Units/L (12-78); ALBUMIN 3.5 g/dL (3.4-5.0); ALKALINE PHOSPHATASE 96 Units/L (46-116); ASPARTATE AMINO TRANSFERASE 17 Units/L (15-37); BLOOD UREA NITROGEN 44 mg/dL (7-18); CALCIUM 8.6 mg/dL (8.5-10.1); CARBON DIOXIDE 21.6 mmol/L (21-32); CHLORIDE 111 mmol/L (98-107); COR NA(FOR HYPERGLY) 146 mmol/L (136-145); CREATININE 2.49 mg/dL (0.55-1.02); SODIUM 145 mmol/L (136-145); TOTAL PROTEIN 7.1 g/dL (6.4-8.2); TSH (3RD GENERATION) 1.344 uIU/mL (0.358-3.74); eGFR BLACK RACES 24 (>60); eGFR NON BLACK RACES 20 (>60)
[2017-09-10 18:30] VITALS: BP 131/60
--- NOTE | 2017-09-10 19:05 | RAD ---
AP Chest Indication: Chest pain with fall Comparison: 07/24/2017 Findings: The trachea is midline. The cardiac silhouette is borderline enlarged, unchanged. Consolidation wit hin the left lung base suspicious for developing infiltrate or aspiration. Right lung is clear. No pl eural effusion or pneumothorax. No acute osseous abnormality.. The bony thorax is unremarkable. IMPRESSION: 1. Borderline cardiomegaly with increasing hazy opacities in left lung base suspicious for developin g infiltrate or aspiration. Recommend correlation with clinical findings along with follow-up PA and lateral chest radiograph for improved characterization. Reported By:
== END 2017-09-10 19:39 | disposition home or self-care (01) ==
LOC: ER 16:37
DX: N17.9 Acute kidney failure, unspecified (principal); E86.0 Dehydration; I95.89 Other hypotension
CPT/HCPCS: 36415; 71010; 80053; 82150; 83690; 84443; 85025; 86140; 93005; 93010; 96365; 96367; 99283; A4222

== ENCOUNTER → 2017-09-30 | Outpatient (CLI) | payer OTHER ==
[2017-09-10 18:30] VITALS: BP 131/60
[2017-09-30 09:50] LABS: BASOPHILS # (AUTO) 0.1 X10^3/uL (0.0-0.1); BASOPHILS % (AUTO) 1.1 % (0.2-1.0); EOSINOPHILS # (AUTO) 0.4 x10^3/uL (0.0-0.2); EOSINOPHILS % (AUTO) 7.9 % (0.9-2.9); HEMATOCRIT 28.5 % (36.0-47.0); HEMOGLOBIN 9.6 g/dL (12.0-16.0); LYMPHOCYTES # (AUTO) 1.4 X10^3/uL (1.3-2.9); MEAN CORPUSCULAR HEMOGLOBIN 31.8 pg (27.0-34.0); MEAN CORPUSCULAR HGB CONC 33.7 g/dL (33.0-35.0); MEAN CORPUSCULAR VOLUME 94.4 fL (80.0-100.0); MEAN PLATELET VOLUME 8.5 fL (7.4-11.0); MONOCYTES # (AUTO) 0.5 x10^3/uL (0.3-0.8); MONOCYTES % (AUTO) 10.4 % (0.0-13.0); NEUTROPHILS # (AUTO) 2.6 x10^3/uL (2.2-4.8); NEUTROPHILS % (AUTO) 52.6 % (42.0-75.0); PLATELET COUNT 240 X10^3/uL (150.0-450.0); RED BLOOD COUNT 3.02 X10^6/uL (3.5-5.4); RED CELL DISTRIBUTION WIDTH 12.2 % (11.6-16.5); WHITE BLOOD COUNT 4.9 X10^3/uL (3.6-10.0)
[2017-09-30 09:55] LABS: HEMOGLOBIN A1C 7.1 % (4.5-6.2)
[2017-09-30 10:01] LABS: BILIRUBIN,URINE NEGATIVE (NEGATIVE); BLOOD/HEMOGLOBIN,URINE NEGATIVE (NEGATIVE); GLUCOSE, URINE NEGATIVE (NEGATIVE); KETONES,URINE NEGATIVE (NEGATIVE); LEUKOCYTE ESTERASE ,URINE 1+ (NEGATIVE); NITRITES,URINE NEGATIVE (NEGATIVE); PROTEIN,URINE NEGATIVE (NEGATIVE); UROBILINOGEN,URINE NORMAL (NORMAL)
[2017-09-30 10:01] LABS: ALBUMIN 3.2 g/dL (3.4-5.0); BILIRUBIN,DIRECT 0.11 mg/dL (0-0.2); CALCIUM 9.1 mg/dL (8.5-10.1); CARBON DIOXIDE 29.1 mmol/L (21-32); CHOL/HDL RATIO 2.4 (0.0-5.0); COR CA(FOR HYPOALB) 9.7 mg/dL (8.5-10.1); CREATININE 1.41 mg/dL (0.55-1.02); PHOSPHORUS 4.2 mg/dL (2.6-4.7); TOTAL PROTEIN 7.1 g/dL (6.4-8.2)
[2017-09-30 10:13] LABS: APPEARANCE,URINE CLEAR (CLEAR); BACTERIA,URINE NEGATIVE /HPF (NEGATIVE); COLOR,URINE YELLOW (YELLOW); RBC,URINE NONE SEEN /HPF (NEGATIVE); SQUAMOUS EPITHELIAL CELL,UR RARE /HPF (NEGATIVE)
== END ==
LOC: LAB 09:19
PROVIDERS: ATTEND Internal Medicine
DX: I12.9 Hypertensive chronic kidney disease with stage 1 through stage 4 chronic kidney disease, or unspecified chronic kidney disease (principal); N18.3 Chronic kidney disease, stage 3 (moderate); E78.4 Other hyperlipidemia; M81.0 Age-related osteoporosis without current pathological fracture; E11.9 Type 2 diabetes mellitus without complications
CPT/HCPCS: 36415; 80061; 80069; 80076; 81001; 82306; 83036; 85025

== ENCOUNTER 2017-11-03 14:27 | Emergency (ER) | payer OTHER ==
[2017-11-03 14:36] VITALS: BP 184/76; BMI 26.6
[2017-11-03] MEDS ORDERED: ANTIVERT TAB 25 MG PO ONE (14:48)
--- NOTE | 2017-11-03 14:51 | DR.DIZZY ---
HPI - Time seen Time seen: 14:45 - PCP Primary Care Physician: GENA DAWKINS - Complaint Chief Complaint Doctor Comments: A 77 y/o female presenting with c/o feeling light headed and dizzy for preceeding 3 weeks. She has no associated tinnitus, nausea vomitting, chest pain or palpitations. She is concerned about possibly being dehydrated. Chief Complaint:: PT STATES " I THINK I MAY BE DEHYDRATED..PT C/O BEING DIZZY FOR THE PAST3 WEEKS PT DENIES ANY NAUSEA NOTED ........ Self Treatment fo Chief Complaint: PT DENIES ANY SELF TX.. - Nurses Notes Reviewed Nurses Notes Review: Yes - Source History Provided: Patient - Mode of Arrival Mode of Arrival: Ambulatory - Timing Onset of Chief Complaint: 10/20/17 - Context Stroke Symptoms: None - Associated signs and symptoms Associated Signs and Symptoms: denies: Normal, Faintness, Syncope, Near Syncope , Vertigo, Tinnitus, Imbalance, Weak, Numb, Difficult Speech, Change of Vision, Fever, Headache, Chest Pain, Palpitations, Nausea, Vomiting, GI Bleed, Other PMH - PMH Past Medical History: Yes Past Medical History: Diabetes, Dyslipidemia, Hypertension Past Surgical History: Yes Surgical History: Cholecystectomy Past Surgical History Comment: TUBAL - Family History History of Family Medical Conditions: Yes Family Medical History: Diabetes Mellitus, [place], Heart Failure, Hypertension - Social History Does patient currently use any type of tobacco product: No Have you used tobacco products in the last 12 months: No Type of Tobacco Use: None Does any household member use tobacco: No Do you use any recreational Drugs:: No Lives With: Family Lives Where: Home - infectious screening In the last 2 months have you had wt loss of >10#?: NO Have you had fever, night sweats or hemotysis?: No Have you traveled outside the country in the last 6 months?: No Isolation: Standard ROS - Review of Systems Constitutional: No Symptoms Reported Eyes: No Symptoms Reported ENTM: No Symptoms Reported Respiratoy: No Symptoms Reported Cardiovascular: No Symptoms Reported Gastrointestinal/Abdominal: No Symptoms Reported Genitourinary: No Symptoms Reported Neurological: Dizziness Musculoskeletal: No Symptoms Reported Integumentary: No Symptoms Reported Hematologic/Lymphatic: No Symptoms Reported Endocrine: No Symptoms Reported Psychiatric: No Symptoms Reported All Other Systems: Reviewed and Negative PE - Vital Signs Vitals: Temperature 96.9 F Pulse Rate 76 Respiratory Rate 20 Blood Pressure [Right Arm] 180/90 Blood Pressure [Left Arm] 131/60 Blood Pressure [Standing] 75/47 Blood Pressure [Sitting] 94/58 Blood Pressure [Lying] 110/58 Blood Pressure 184/76 O2 Sat by Pulse Oximetry 96 - General Limitations: No Limitations General Appearance: Alert, In No Apparent Distress - Head Head Exam: Normal Inspection - Eyes Eye exam: Normal Appearance - ENT ENT Exam: Normal Exam, Normal Oropharynx, Normal External Ear Exam - Neck Neck Exam: Normal Inspection, Full ROM - Chest Chest Inspection: Normal Inspection - Respiratory Respiratory Exam: Normal Lung Sounds Bilat - Cardiovascular Cardiovascular Exam: Regular Rate, Normal Rhythm - Abdominal Exam Abdominal Exam: Normal Inspection, Normal Bowel Sounds, Soft - Extremeties Extremities Exam: Normal Inspection, Full ROM - Back Back Exam: Normal Inspection, Full ROM - Neurologic Neurological Exam: Alert, Oriented X3, CN II-XII Intact, Normal Gait - Psychiatric Psychiatric Exam: Normal Affect, Normal Mood - Skin Skin Exam: Warm, Dry, Intact, Normal Color ROR - Labs Reviewed Result Diagrams: 11/03/17 14:53 11/03/17 14:53 Laboratory: WBC 5.1 X10^3/uL (3.6-10.0) 11/03/17 14:53 RBC 3.25 X10^6/uL (3.5-5.4) L 11/03/17 14:53 Hgb 10.2 g/dL (12.0-16.0) L 11/03/17 14:53 Hct 30.4 % (36.0-47.0) L 11/03/17 14:53 MCV 93.4 fL (80.0-100.0) 11/03/17 14:53 MCH 31.5 pg (27.0-34.0) 11/03/17 14:53 MCHC 33.7 g/dL (33.0-35.0) 11/03/17 14:53 RDW 12.5 % (11.6-16.5) 11/03/17 14:53 Plt Count 208 X10^3/uL (150.0-450.0) 11/03/17 14:53 MPV 9.5 fL (7.4-11.0) 11/03/17 14:53 Neut % 62.0 % (42.0-75.0) 11/03/17 14:53 Lymph % 21.4 % (21.0-51.0) 11/03/17 14:53 [place] % 8.1 % (0.0-13.0) 11/03/17 14:53 Eos % 7.3 % (0.9-2.9) H 11/03/17 14:53 Baso % 1.2 % (0.2-1.0) H 11/03/17 14:53 Neut # 3.2 x10^3/uL (2.2-4.8) 11/03/17 14:53 Lymph # 1.1 X10^3/uL (1.3-2.9) L 11/03/17 14:53 [place] # 0.4 x10^3/uL (0.3-0.8) 11/03/17 14:53 Eos # 0.4 x10^3/uL (0.0-0.2) H 11/03/17 14:53 Baso # 0.1 X10^3/uL (0.0-0.1) 11/03/17 14:53 Absolute Nucleated RBC 0.0 /100WBC 11/03/17 14:53 Sodium 142 mmol/L (136-145) 11/03/17 14:53 Corrected Sodium 145 mmol/L (136-145) 11/03/17 14:53 Potassium 4.2 mmol/L (3.5-5.1) 11/03/17 14:53 Chloride 105 mmol/L (98-107) 11/03/17 14:53 Carbon Dioxide 29.4 mmol/L (21-32) 11/03/17 14:53 BUN 13 mg/dL (7-18) 11/03/17 14:53 Creatinine 1.15 mg/dL (0.55-1.02) H 11/03/17 14:53 Est GFR (MDRD) Af Amer 59 (>60) 11/03/17 14:53 Est GFR (MDRD) Non-Af 49 (>60) L 11/03/17 14:53 Glucose 231 mg/dL (65-99) H 11/03/17 14:53 Calcium 8.9 mg/dL (8.5-10.1) 11/03/17 14:53 Corrected Calcium TNP 11/03/17 14:53 Total Bilirubin 0.20 mg/dL (0.2-1.0) 11/03/17 14:53 AST 14 Units/L (15-37) L 11/03/17 14:53 ALT 19 Units/L (12-78) 11/03/17 14:53 Alkaline Phosphatase 92 Units/L (46-116) 11/03/17 14:53 Total Protein 7.0 g/dL (6.4-8.2) 11/03/17 14:53 Albumin 3.4 g/dL (3.4-5.0) 11/03/17 14:53 Globulin 3.6 g/dL (2.5-4.5) 11/03/17 14:53 Albumin/Globulin Ratio 0.9 Ratio (1.1-2.1) L 11/03/17 14:53 - EKG Rate: 70 [place]: Normal Rhythm: NSR Block: None Hypertrophy: LVH ST: Normal - Diagnosis Discharge Problem: Dizziness - Discharge Plan Disposition: 01 HOME, SELF-CARE Condition: Stable - Follow ups/Referrals Follow ups/Referrals: RODRI DAWKINS [Primary Care Provider] - 3 days - Instructions
[2017-11-03 15:04] LABS: BASOPHILS # (AUTO) 0.1 X10^3/uL (0.0-0.1); BASOPHILS % (AUTO) 1.2 % (0.2-1.0); EOSINOPHILS # (AUTO) 0.4 x10^3/uL (0.0-0.2); EOSINOPHILS % (AUTO) 7.3 % (0.9-2.9); HEMATOCRIT 30.4 % (36.0-47.0); HEMOGLOBIN 10.2 g/dL (12.0-16.0); LYMPHOCYTES # (AUTO) 1.1 X10^3/uL (1.3-2.9); LYMPHOCYTES % (AUTO) 21.4 % (21.0-51.0); MEAN CORPUSCULAR HEMOGLOBIN 31.5 pg (27.0-34.0); MEAN CORPUSCULAR HGB CONC 33.7 g/dL (33.0-35.0); MEAN CORPUSCULAR VOLUME 93.4 fL (80.0-100.0); MEAN PLATELET VOLUME 9.5 fL (7.4-11.0); MONOCYTES # (AUTO) 0.4 x10^3/uL (0.3-0.8); MONOCYTES % (AUTO) 8.1 % (0.0-13.0); NEUTROPHILS # (AUTO) 3.2 x10^3/uL (2.2-4.8); PLATELET COUNT 208 X10^3/uL (150.0-450.0); RED BLOOD COUNT 3.25 X10^6/uL (3.5-5.4); RED CELL DISTRIBUTION WIDTH 12.5 % (11.6-16.5); WHITE BLOOD COUNT 5.1 X10^3/uL (3.6-10.0)
[2017-11-03] MEDS ORDERED: ANTIVERT TAB 25 MG ONE (15:07)
[2017-11-03 15:13] LABS: ALANINE AMINOTRANSFERASE 19 Units/L (12-78); ALBUMIN 3.4 g/dL (3.4-5.0); ALKALINE PHOSPHATASE 92 Units/L (46-116); ASPARTATE AMINO TRANSFERASE 14 Units/L (15-37); BLOOD UREA NITROGEN 13 mg/dL (7-18); CALCIUM 8.9 mg/dL (8.5-10.1); CARBON DIOXIDE 29.4 mmol/L (21-32); CHLORIDE 105 mmol/L (98-107); COR NA(FOR HYPERGLY) 145 mmol/L (136-145); CREATININE 1.15 mg/dL (0.55-1.02); SODIUM 142 mmol/L (136-145); eGFR BLACK RACES 59 (>60); eGFR NON BLACK RACES 49 (>60)
== END 2017-11-03 15:40 | disposition home or self-care (01) ==
LOC: ER 14:32
DX: R42 Dizziness and giddiness (principal)
CPT/HCPCS: 36415; 80053; 85025; 93005; 93010; 99282

== ENCOUNTER → 2017-11-10 | Outpatient (CLI) | payer OTHER ==
[2017-11-03 14:36] VITALS: BP 184/76
[2017-11-10 13:07] LABS: BASOPHILS # (AUTO) 0.1 X10^3/uL (0.0-0.1); BASOPHILS % (AUTO) 0.8 % (0.2-1.0); EOSINOPHILS # (AUTO) 0.2 x10^3/uL (0.0-0.2); EOSINOPHILS % (AUTO) 3.6 % (0.9-2.9); HEMATOCRIT 34.2 % (36.0-47.0); HEMOGLOBIN 11.5 g/dL (12.0-16.0); LYMPHOCYTES # (AUTO) 1.2 X10^3/uL (1.3-2.9); MEAN CORPUSCULAR HEMOGLOBIN 31.5 pg (27.0-34.0); MEAN CORPUSCULAR HGB CONC 33.6 g/dL (33.0-35.0); MEAN CORPUSCULAR VOLUME 93.8 fL (80.0-100.0); MEAN PLATELET VOLUME 9.8 fL (7.4-11.0); MONOCYTES # (AUTO) 0.5 x10^3/uL (0.3-0.8); MONOCYTES % (AUTO) 8.4 % (0.0-13.0); NEUTROPHILS # (AUTO) 4.4 x10^3/uL (2.2-4.8); NEUTROPHILS % (AUTO) 68.2 % (42.0-75.0); PLATELET COUNT 231 X10^3/uL (150.0-450.0); RED BLOOD COUNT 3.64 X10^6/uL (3.5-5.4); RED CELL DISTRIBUTION WIDTH 12.3 % (11.6-16.5); WHITE BLOOD COUNT 6.4 X10^3/uL (3.6-10.0)
[2017-11-10 13:12] LABS: ALBUMIN 3.9 g/dL (3.4-5.0); BLOOD UREA NITROGEN 15 mg/dL (7-18); CALCIUM 8.8 mg/dL (8.5-10.1); CARBON DIOXIDE 28.3 mmol/L (21-32); CHLORIDE 103 mmol/L (98-107); CHOL/HDL RATIO 2.4 (0.0-5.0); CHOLESTEROL 153 mg/dL (0-200); COR NA(FOR HYPERGLY) 142 mmol/L (136-145); CREATININE 1.25 mg/dL (0.55-1.02); HDL CHOLESTEROL 64 mg/dL (40-60); PHOSPHORUS 3.8 mg/dL (2.6-4.7); SODIUM 139 mmol/L (136-145); TRIGLYCERIDES 101 mg/dL (0-150); URIC ACID 5.4 mg/dL (2.6-6.0); eGFR BLACK RACES 54 (>60); eGFR NON BLACK RACES 44 (>60)
[2017-11-16 07:25] LABS: METHYLMALONIC ACID 0.18 umol/L (0.00-0.40)
== END ==
LOC: LAB 12:29
PROVIDERS: ATTEND Internal Medicine
DX: D51.8 Other vitamin B12 deficiency anemias (principal); E55.9 Vitamin D deficiency, unspecified; I12.9 Hypertensive chronic kidney disease with stage 1 through stage 4 chronic kidney disease, or unspecified chronic kidney disease; N18.3 Chronic kidney disease, stage 3 (moderate)
CPT/HCPCS: 36415; 80061; 80069; 82306; 82607; 83036; 83918; 84550; 85025

== ENCOUNTER → 2018-02-07 | Outpatient (CLI) | payer OTHER ==
[2018-02-07 11:31] LABS: BASOPHILS % (AUTO) 0.8 % (0.2-1.0); EOSINOPHILS # (AUTO) 0.3 x10^3/uL (0.0-0.2); EOSINOPHILS % (AUTO) 6.1 % (0.9-2.9); HEMATOCRIT 33.9 % (36.0-47.0); HEMOGLOBIN 11.5 g/dL (12.0-16.0); LYMPHOCYTES # (AUTO) 1.3 X10^3/uL (1.3-2.9); LYMPHOCYTES % (AUTO) 28.4 % (21.0-51.0); MEAN CORPUSCULAR HGB CONC 33.8 g/dL (33.0-35.0); MEAN CORPUSCULAR VOLUME 91.8 fL (80.0-100.0); MEAN PLATELET VOLUME 10.1 fL (7.4-11.0); MONOCYTES # (AUTO) 0.4 x10^3/uL (0.3-0.8); MONOCYTES % (AUTO) 8.7 % (0.0-13.0); NEUTROPHILS # (AUTO) 2.6 x10^3/uL (2.2-4.8); PLATELET COUNT 196 X10^3/uL (150.0-450.0); RED BLOOD COUNT 3.69 X10^6/uL (3.5-5.4); RED CELL DISTRIBUTION WIDTH 12.6 % (11.6-16.5); WHITE BLOOD COUNT 4.7 X10^3/uL (3.6-10.0)
[2018-02-07 11:33] LABS: ALANINE AMINOTRANSFERASE 19 Units/L (12-78); ALBUMIN 3.7 g/dL (3.4-5.0); ALKALINE PHOSPHATASE 101 Units/L (46-116); ASPARTATE AMINO TRANSFERASE 14 Units/L (15-37); BLOOD UREA NITROGEN 23 mg/dL (7-18); CALCIUM 8.4 mg/dL (8.5-10.1); CARBON DIOXIDE 27.7 mmol/L (21-32); CHLORIDE 102 mmol/L (98-107); CHOL/HDL RATIO 2.7 (0.0-5.0); CHOLESTEROL 148 mg/dL (0-200); COR NA(FOR HYPERGLY) 143 mmol/L (136-145); CREATININE 1.26 mg/dL (0.55-1.02); HDL CHOLESTEROL 54 mg/dL (40-60); SODIUM 139 mmol/L (136-145); TOTAL PROTEIN 7.9 g/dL (6.4-8.2); TRIGLYCERIDES 108 mg/dL (0-150); eGFR BLACK RACES 53 (>60); eGFR NON BLACK RACES 44 (>60)
[2018-02-07 11:34] LABS: CREATININE,URINE 134.95 mg/dL (29-226); MICROALBUMIN,URINE 7.4 mg/L
== END ==
LOC: LAB 10:51
PROVIDERS: ATTEND Nurse Practitioner Family
DX: I10 Essential (primary) hypertension (principal); E78.4 Other hyperlipidemia; E56.8 Deficiency of other vitamins; E11.21 Type 2 diabetes mellitus with diabetic nephropathy; E55.9 Vitamin D deficiency, unspecified
CPT/HCPCS: 36415; 80053; 80061; 82043; 82306; 85025

== ENCOUNTER 2023-04-09 13:45 | Observation (INO) ==
--- NOTE | 2023-04-09 14:36 | DR.DIZZY ---
HPI Time seen Time Seen by Provider: 04/09/23 14:15 PCP Primary Care Physician: Aleyda Suggs Complaint Chief Complaint Doctor Comments: BLURRED VISION FOR 3-4 DAYS WITH WEAKNESS AND LOSS OF APPETITE. Chief Complaint:: "I have been sick for 3-4 days, blurred vision, just dont feel good and I havent been eating, I just dont feel good." COVID-19 Coronavirus risk:travel/contact w/high risk person: No Has patient experienced Coronavirus symptoms: No Source History Provided: Patient Mode of Arrival Mode of Arrival: Stretcher Timing Onset of Chief Complaint: 04/06/23 Context Stroke Symptoms: None PMH PMH Past Medical History: Yes Past Medical History: Diabetes, Dyslipidemia, GERD and Hypertension Past Surgical History: Yes Surgical History: Cholecystectomy Past Surgical History Comment: tubal ligation Family History History of Family Medical Conditions: Yes Family Medical History: Diabetes Mellitus, Cancer and Hypertension Social History Type of Tobacco Use: Cigarettes Alcohol Use: None Do you use any recreational Drugs:: No Lives With: Family Lives Where: Home Travel Risk Coronavirus risk:travel/contact w/high risk person: No Has patient experienced Coronavirus symptoms: No Infectious screening Have you traveled outside the country in the last 6 months?: No Isolation: Standard ROS Review of Systems Constitutional: Weakness, Fatigue and Loss of Appetite Eyes: No Symptoms Reported ENTM: No Symptoms Reported Respiratoy: No Symptoms Reported Cardiovascular: No Symptoms Reported Gastrointestinal/Abdominal: No Symptoms Reported Genitourinary: No Symptoms Reported Neurological: No Symptoms Reported Musculoskeletal: Other (MUSCLE WEAKNESS) Integumentary: No Symptoms Reported Hematologic/Lymphatic: No Symptoms Reported Endocrine: Decreased Appetite Psychiatric: No Symptoms Reported PE Vital Signs Vitals: Temperature 98.3 F Pulse Rate [Left Radial] 70 Pulse Rate 79 Respiratory Rate 20 Blood Pressure [Right Arm] 189/89 Blood Pressure [Left Arm] 131/60 Blood Pressure [Standing] 75/47 Blood Pressure [Sitting] 94/58 Blood Pressure [Lying] 110/58 Blood Pressure 183/74 O2 Sat by Pulse Oximetry 100 General Limitations: No Limitations and Physical Limitation (WEAKNESS DUE TO DEHYDRATION,MALNUTRITION) General Appearance: In No Apparent Distress Head Head Exam: Normal Inspection, Atraumatic and Normocephalic Eyes Eye exam: Normal Appearance, PERRL and EOMI Pupils: Regular, Round: Bilateral ENT ENT Exam: Normal Exam, Normal Oropharynx and Normal External Ear Exam Neck Neck Exam: Normal Inspection, Full ROM and Trachea Midline Chest Chest Inspection: Normal Inspection and Symmetric Chest Wall Rise Respiratory Respiratory Exam: Normal Lung Sounds Bilat Respiratory Exam: Bilateral: Clear to Auscultation Cardiovascular Cardiovascular Exam: Regular Rate and Normal Rhythm Abdominal Exam Abdominal Exam: Normal Inspection, Normal Bowel Sounds and Soft Rectal Rectal Exam: Deferred Extremeties Extremities Exam: Other (POOR SKIN TURGOR) Back Back Exam: Normal Inspection and Full ROM Neurologic Neurological Exam: Alert and Other (SOME DEMENTIA) Patient Oriented To: Person Speech: Fluid Speech Motor Strength - LUE: 3/5 Motor Strength - RUE: 3/5 Motor Strength - LLE: 3/5 Motor Strength - RLE: 3/5 MDM Differential Diagnosis Differential Diagnosis: Dehydration, Electrolyte disorder and Other (MALNUTRITION) COURSE Treatment Treatment: PATIENT REMAINED RELATIVELY STABLE DURING ER EVALUTION. WAS GIVEN ONE LITER BOLUS OF NACL IN ER. LABS WERE RELITIVELY NORMAL EXCEPT HAS ELEVATED BUN OF 38 AND CREATININE OF 1.39. PATIENT HAS OBVIOUS EARLY DEMENTIA AND PROTEIN CALORIE MALNUTRITION AND DEHYRATION. I SPOKE TI DR KNAPP AT 525 AND HE ACCEPTED THE PATIENT FOR ADMISSION. I SPOKE TO THE PATIENT'S DAUGHTER,PETRA MATHIAS OF [facility],PHONE [phone], AT 1750 AND TOLD HER ABOUT HER MOTHER'S CONDITION AND SHE STATED THAT THEY WOULD BE COMING UP TOMORROW TO SEE WHAT HER DISPOSITION WOULD BE. THAE PATIENT WAS TOLD OF THIS PLAN AND WAS AGREABLE TO THE PLAN. ROR Labs Reviewed Result Diagrams: 04/09/23 14:04/09/23 14: Laboratory: WBC 7.3 X10^3/uL (3.6-10.0) 04/09/23 14: RBC 3.83 X10^6/uL (3.5-5.4) 04/09/23 14: Hgb 12.2 g/dL (12.0-16.0) 04/09/23 14: Hct 36.5 % (36.0-47.0) 04/09/23 14: MCV 95.2 fL (80.0-100.0) 04/09/23 14: MCH 31.8 pg (27.0-34.0) 04/09/23 14: MCHC 33.4 g/dL (33.0-35.0) 04/09/23 14: RDW 12.7 % (11.6-16.5) 04/09/23 14: Plt Count 223 X10^3/uL (150.0-450.0) 04/09/23 14: MPV 8.7 fL (7.4-11.0) 04/09/23 14:27 Neut % (Auto) 79.8 % (42.0-75.0) H 04/09/23 14:27 Lymph % (Auto) 13.4 % (21.0-51.0) L 04/09/23 14:27 [place] % (Auto) 6.1 % (0.0-13.0) 04/09/23 14: Eos % (Auto) 0.1 % (0.9-2.9) L 04/09/23 14: Baso % (Auto) 0.6 % (0.2-1.0) 04/09/23 14: Neut # (Auto) 5.9 x10^3/uL (2.2-4.8) H 04/09/23 14:27 Lymph # (Auto) 1.0 X10^3/uL (1.3-2.9) L 04/09/23 14:27 [place] # (Auto) 0.4 x10^3/uL (0.3-0.8) 04/09/23 14: Eos # (Auto) 0.0 x10^3/uL (0.0-0.2) 04/09/23 14: Baso # (Auto) 0.0 X10^3/uL (0.0-0.1) 04/09/23 14: Absolute Nucleated RBC 0.0 /100WBC 04/09/23 14:27 Sodium 138 mmol/L (136-145) 04/09/23 14:27 Corrected Sodium 139 mmol/L (136-145) 04/09/23 14:27 Potassium 5.0 mmol/L (3.5-5.1) 04/09/23 14:27 Chloride 106 mmol/L (98-107) 04/09/23 14: Carbon Dioxide 24.2 mmol/L (21-32) 04/09/23 14:27 BUN 38 mg/dL (7-18) H 04/09/23 14:27 Creatinine 1.39 mg/dL (0.55-1.02) H 04/09/23 14:27 Est GFR (MDRD) Af Amer 47 (>60) L 04/09/23 14:27 Est GFR (MDRD) Non-Af 39 (>60) L 04/09/23 14:27 Glucose 131 mg/dL (65-99) H 04/09/23 14:27 Calcium 8.9 mg/dL (8.5-10.1) 04/09/23 14:27 Corrected Calcium TNP 04/09/23 14:27 Total Bilirubin 0.50 mg/dL (0.2-1.0) 04/09/23 14:27 AST 18 Units/L (15-37) 04/09/23 14:27 ALT 16 Units/L (12-78) 04/09/23 14:27 Alkaline Phosphatase 76 Units/L (46-116) 04/09/23 14:27 Total Protein 7.9 g/dL (6.4-8.2) 04/09/23 14:27 Albumin 3.8 g/dL (3.4-5.0) 04/09/23 14:27 Globulin 4.1 g/dL (2.5-4.5) 04/09/23 14:27 Albumin/Globulin Ratio 0.9 Ratio (1.1-2.1) L 04/09/23 14:27 Specimen Type Catherized urine 04/09/23 14:37 Urine Color Yellow (YELLOW) 04/09/23 14:37 Urine Appearance Clear (CLEAR) 04/09/23 14:37 Urine pH 5.0 (5.0 - 8.0) 04/09/23 14:37 Ur Specific [place] 1.020 (1.000-1.030) 04/09/23 14:37 Urine Protein Negative (NEGATIVE) 04/09/23 14:37 Urine Glucose (UA) Negative (NEGATIVE) 04/09/23 14:37 Urine Ketones Negative (NEGATIVE) 04/09/23 14:37 Urine Blood 1+ (NEGATIVE) 04/09/23 14:37 Urine Nitrite Negative (NEGATIVE) 04/09/23 14:37 Urine Bilirubin Negative (NEGATIVE) 04/09/23 14:37 Urine Urobilinogen Normal (NORMAL) 04/09/23 14:37 Ur Leukocyte Esterase Negative (NEGATIVE) 04/09/23 14:37 Urine RBC None seen /HPF (0-3) 04/09/23 14:37 Urine WBC None seen /HPF (0-5) 04/09/23 14:37 Ur Squamous Epith Cells Rare /HPF (NEGATIVE) 04/09/23 14:37 Urine Bacteria Trace /HPF (NEGATIVE) 04/09/23 14:37 Urine Mucus Rare /HPF (NEGATIVE) 04/09/23 14:37 Ur Culture Indicated? No/not indicated 04/09/23 14:37 SARS-CoV-2 (PCR) Negative (NEGATIVE) 04/09/23 14:19 Influenza Type A (PCR) Negative (NEGATIVE) 04/09/23 14:19 Influenza Type B (PCR) Negative (NEGATIVE) 04/09/23 14:19 RSV (PCR) Negative (NEGATIVE) 04/09/23 14:19 XRAY XRAY Interpreted by: Radiologist (CHEST XRAY -NO ACUTE INTRATHORACIC ABNORMALITY.) Opioid Opioid Risk Tool Age (Jhon box if 16-45): No History of Preadolescent Sexual Abuse: No Total: 0 Total Score Risk Category: Low Risk Copyright: Jd HINTON predicting aberrant behaviors Discharge Plan Diagnosis Discharge Problem: Dehydration, Mild protein-calorie malnutrition (weight for age 75-89% of standard), Dementia, Mild renal insufficiency Discharge Plan Patient Disposition: 09 ADMITTED INPATIENT Condition: Stable Orders to Discharge Patient Discharge Orders: Transfer (Routine); Ordered 04/09/23 Ordered By: Livan Cruz
[2023-04-09 14:37] LABS: BASOPHILS % (AUTO) 0.6 % (0.2-1.0); EOSINOPHILS % (AUTO) 0.1 % (0.9-2.9); HEMATOCRIT 36.5 % (36.0-47.0); HEMOGLOBIN 12.2 g/dL (12.0-16.0); LYMPHOCYTES % (AUTO) 13.4 % (21.0-51.0); MEAN CORPUSCULAR HEMOGLOBIN 31.8 pg (27.0-34.0); MEAN CORPUSCULAR HGB CONC 33.4 g/dL (33.0-35.0); MEAN CORPUSCULAR VOLUME 95.2 fL (80.0-100.0); MEAN PLATELET VOLUME 8.7 fL (7.4-11.0); MONOCYTES # (AUTO) 0.4 x10^3/uL (0.3-0.8); MONOCYTES % (AUTO) 6.1 % (0.0-13.0); NEUTROPHILS # (AUTO) 5.9 x10^3/uL (2.2-4.8); NEUTROPHILS % (AUTO) 79.8 % (42.0-75.0); PLATELET COUNT 223 X10^3/uL (150.0-450.0); RED BLOOD COUNT 3.83 X10^6/uL (3.5-5.4); RED CELL DISTRIBUTION WIDTH 12.7 % (11.6-16.5); WHITE BLOOD COUNT 7.3 X10^3/uL (3.6-10.0)
--- NOTE | 2023-04-09 14:38 | RAD ---
HISTORYWEAKNESS, PT NOT EATINGSTUDYCHEST, 1 VIEWCOMPARISONNoneFINDINGSThe trachea is midline. The cardiac silhouette is unremarkable . The lungs are clear without focal infiltrate or effusion. The bony thorax is unremarkable.IMPRESSIONNo acute cardiopulmonary disease.Electronically signed by: KERRI GALVAN (April 09, 2023 14:36:53)
[2023-04-09 14:45] LABS: BILIRUBIN,URINE NEGATIVE (NEGATIVE); BLOOD/HEMOGLOBIN,URINE 1+ (NEGATIVE); GLUCOSE, URINE NEGATIVE (NEGATIVE); KETONES,URINE NEGATIVE (NEGATIVE); LEUKOCYTE ESTERASE ,URINE NEGATIVE (NEGATIVE); NITRITES,URINE NEGATIVE (NEGATIVE); PROTEIN,URINE NEGATIVE (NEGATIVE); UROBILINOGEN,URINE NORMAL (NORMAL)
[2023-04-09 14:47] LABS: ALANINE AMINOTRANSFERASE 16 Units/L (12-78); ALBUMIN 3.8 g/dL (3.4-5.0); ALKALINE PHOSPHATASE 76 Units/L (46-116); ASPARTATE AMINO TRANSFERASE 18 Units/L (15-37); BLOOD UREA NITROGEN 38 mg/dL (7-18); CALCIUM 8.9 mg/dL (8.5-10.1); CARBON DIOXIDE 24.2 mmol/L (21-32); CHLORIDE 106 mmol/L (98-107); COR NA(FOR HYPERGLY) 139 mmol/L (136-145); CREATININE 1.39 mg/dL (0.55-1.02); GLUCOSE 131 mg/dL (65-99); SODIUM 138 mmol/L (136-145); TOTAL PROTEIN 7.9 g/dL (6.4-8.2); eGFR NON BLACK RACES 39 (>60)
[2023-04-09] MEDS ORDERED: NS 1,000 ML IV 1,000 ML ONE ×2 (14:48→18:31)
[2023-04-09] MEDS ORDERED: NS 1,000 ML IV 1,000 ML IV ONE (14:54)
[2023-04-09 14:57] LABS: APPEARANCE,URINE CLEAR (CLEAR); COLOR,URINE YELLOW (YELLOW)
[2023-04-09 15:01] LABS: BACTERIA,URINE TRACE /HPF (NEGATIVE); RBC,URINE NONE SEEN /HPF (0-3); SQUAMOUS EPITHELIAL CELL,UR RARE /HPF (NEGATIVE)
[2023-04-09] MEDS: NS 1,000 ML IV 1,000 ML IV SCH (18:36)
[2023-04-09] MEDS ORDERED: ZOFRAN TAB 4 MG PO PRN (19:44)
[2023-04-09] MEDS ORDERED: PATIENT'S HOME MEDICATION (Insulin Aspart U-100 [Novolog Flexpen U-100 Insulin] 100 unit/m subcut PRN (19:44)
[2023-04-09] MEDS: CRESTOR TAB 10 MG PO SCH (20:54)
[2023-04-09] MEDS: TYLENOL 325 MG TAB PO PRN (20:54)
[2023-04-09] MEDS ORDERED: NORVASC TAB 5 MG ONE (21:36)
[2023-04-09] MEDS ORDERED: VASOTEC TAB 5 MG ONE (21:36)
[2023-04-09] MEDS: NORVASC TAB 5 MG PO SCH (23:34)
[2023-04-09] MEDS: VASOTEC TAB 5 MG PO SCH (23:38)
[2023-04-10] MEDS: NS 1,000 ML IV 1,000 ML IV SCH ×3 (03:22→20:26)
[2023-04-10 06:21] LABS: BASOPHILS % (AUTO) 0.5 % (0.2-1.0); EOSINOPHILS # (AUTO) 0.1 x10^3/uL (0.0-0.2); HEMATOCRIT 34.5 % (36.0-47.0); HEMOGLOBIN 11.7 g/dL (12.0-16.0); LYMPHOCYTES # (AUTO) 1.6 X10^3/uL (1.3-2.9); LYMPHOCYTES % (AUTO) 24.3 % (21.0-51.0); MEAN CORPUSCULAR HEMOGLOBIN 31.9 pg (27.0-34.0); MEAN CORPUSCULAR HGB CONC 33.8 g/dL (33.0-35.0); MEAN CORPUSCULAR VOLUME 94.5 fL (80.0-100.0); MEAN PLATELET VOLUME 8.8 fL (7.4-11.0); MONOCYTES # (AUTO) 0.7 x10^3/uL (0.3-0.8); MONOCYTES % (AUTO) 10.7 % (0.0-13.0); NEUTROPHILS # (AUTO) 4.2 x10^3/uL (2.2-4.8); NEUTROPHILS % (AUTO) 63.5 % (42.0-75.0); PLATELET COUNT 194 X10^3/uL (150.0-450.0); RED BLOOD COUNT 3.65 X10^6/uL (3.5-5.4); RED CELL DISTRIBUTION WIDTH 12.7 % (11.6-16.5); WHITE BLOOD COUNT 6.6 X10^3/uL (3.6-10.0)
[2023-04-10 06:33] LABS: ALBUMIN 3.2 g/dL (3.4-5.0); CALCIUM 8.4 mg/dL (8.5-10.1); CARBON DIOXIDE 21.9 mmol/L (21-32); CREATININE 1.16 mg/dL (0.55-1.02); POTASSIUM 4.5 mmol/L (3.5-5.1); TOTAL PROTEIN 6.9 g/dL (6.4-8.2)
[2023-04-10] MEDS ORDERED: INSULIN DETEMIR U subcut SCH (09:00)
[2023-04-10] MEDS ORDERED: VASOTEC TAB 5 MG PO SCH (09:00)
[2023-04-10] MEDS ORDERED: NORVASC TAB 5 MG PO SCH (09:00)
[2023-04-10] MEDS: NORVASC TAB 5 MG PO SCH (09:11)
[2023-04-10] MEDS: ASPIRIN EC 81 MG PO SCH (09:11)
[2023-04-10] MEDS: VASOTEC TAB 5 MG PO SCH (09:11)
[2023-04-10] MEDS: PROTONIX TAB 40 MG PO SCH (09:12)
[2023-04-10] MEDS: LEVEMIR SC SCH (09:31)
[2023-04-10 10:16] VITALS: BMI 29.0
[2023-04-10] MEDS: ALDACTONE TAB 25 MG PO SCH ×2 (12:21→20:25)
[2023-04-10] MEDS: NovoLIN R (or HumuLIN R) SUBCUT PRN ×2 (16:56→20:33)
--- NOTE | 2023-04-10 18:40 | DR.H&P ---
H&P History & Physical for Day of: H&P Date: 04/10/23 Chief Complaint Chief Complaint: Been sick for 3 to 4 days and having blurred vision and I just do not feel good. Allergies Allergies Allergy/AdvReac Type Severity Reaction Status Date / Time No Known Drug Allergies Allergy Unknown Verified 03/24/23 13:12 History of Present Illness History of Present Illness: This is a 82-year-old white female who presented to the [facility] emergency department last night. Patient reports she has not felt well for the last 3 to 4 days has been having blurry vision, not eating much and just generally not feeling well. Patient does not give a lot of information out but I see that she had some positive parietal cell antibodies in the past. I will we will go ahead and check her vitamin B12 level and folate level today. The labs work-up in the emergency department last night showed that she was dehydrated other than that nothing was found. Her hydration status is improved since yesterday. She is currently receiving IV fluids at this time. Past Medical History Past Medical History: Diabetes, Dyslipidemia, GERD and Hypertension Past Surgical History Surgical History: Cholecystectomy and Other Additional Surgical History: Tubal Ligation Family History Family Medical History: Diabetes Mellitus, Cancer and Hypertension Social History Type of Tobacco Use: Cigarettes Alcohol Use: None Drug Use: None Medications Home Medications: No Known Drug Allergies Allergy (Unknown, Verified 03/24/23 13:12) CONTINUE taking the following medications amlodipine 5 mg tablet 1 tab PO QDAY 04/09/23 [History] aspirin 81 mg tablet,delayed release 81 mg PO QDAY 04/09/23 [History] enalapril maleate 5 mg tablet 1 tab PO QDAY 04/09/23 [History] insulin detemir U-100 100 unit/mL (3 mL) subcutaneous pen 32 unit subcut HS 04/09/23 [History] ondansetron HCl 4 mg tablet 4 mg PO DAILY PRN 04/09/23 [History] pantoprazole 40 mg tablet,delayed release 1 tab PO QDAY 04/09/23 [History] rosuvastatin 10 mg tablet 1 tab PO QPM 04/09/23 [History] sitagliptin phosphate 100 mg tablet (Januvia) 1 tab PO QDAY 04/09/23 [History] spironolactone 25 mg tablet 1 tab PO BID 04/09/23 [History] Labs Result Diagrams: 04/10/23 05:50 04/10/23 05:50 Labs: Laboratory WBC 6.6 X10^3/uL (3.6-10.0) 04/10/23 05:50 RBC 3.65 X10^6/uL (3.5-5.4) 04/10/23 05:50 Hgb 11.7 g/dL (12.0-16.0) L 04/10/23 05:50 Hct 34.5 % (36.0-47.0) L 04/10/23 05:50 MCV 94.5 fL (80.0-100.0) 04/10/23 05:50 MCH 31.9 pg (27.0-34.0) 04/10/23 05:50 MCHC 33.8 g/dL (33.0-35.0) 04/10/23 05:50 RDW 12.7 % (11.6-16.5) 04/10/23 05:50 Plt Count 194 X10^3/uL (150.0-450.0) 04/10/23 05:50 MPV 8.8 fL (7.4-11.0) 04/10/23 05:50 Neut % (Auto) 63.5 % (42.0-75.0) 04/10/23 05:50 Lymph % (Auto) 24.3 % (21.0-51.0) 04/10/23 05:50 [place] % (Auto) 10.7 % (0.0-13.0) 04/10/23 05:50 Eos % (Auto) 1.0 % (0.9-2.9) 04/10/23 05:50 Baso % (Auto) 0.5 % (0.2-1.0) 04/10/23 05:50 Neut # (Auto) 4.2 x10^3/uL (2.2-4.8) 04/10/23 05:50 Lymph # (Auto) 1.6 X10^3/uL (1.3-2.9) 04/10/23 05:50 [place] # (Auto) 0.7 x10^3/uL (0.3-0.8) 04/10/23 05:50 Eos # (Auto) 0.1 x10^3/uL (0.0-0.2) 04/10/23 05:50 Baso # (Auto) 0.0 X10^3/uL (0.0-0.1) 04/10/23 05:50 Absolute Nucleated RBC 0.0 /100WBC 04/10/23 05:50 Sodium 138 mmol/L (136-145) 04/10/23 05:50 Corrected Sodium 139 mmol/L (136-145) 04/10/23 05:50 Potassium 4.5 mmol/L (3.5-5.1) 04/10/23 05:50 Chloride 106 mmol/L (98-107) 04/10/23 05:50 Carbon Dioxide 21.9 mmol/L (21-32) 04/10/23 05:50 BUN 25 mg/dL (7-18) H 04/10/23 05:50 Creatinine 1.16 mg/dL (0.55-1.02) H 04/10/23 05:50 Est GFR (MDRD) Af Amer 58 (>60) L 04/10/23 05:50 Est GFR (MDRD) Non-Af 48 (>60) L 04/10/23 05:50 Glucose 135 mg/dL (65-99) H 04/10/23 05:50 POC Glucose (mg/dL) 261 mg/dL (65-99) H 04/10/23 16:47 Calcium 8.4 mg/dL (8.5-10.1) L 04/10/23 05:50 Corrected Calcium 9.0 mg/dL (8.5-10.1) 04/10/23 05:50 Total Bilirubin 0.40 mg/dL (0.2-1.0) 04/10/23 05:50 AST 16 Units/L (15-37) 04/10/23 05:50 ALT 15 Units/L (12-78) 04/10/23 05:50 Alkaline Phosphatase 68 Units/L (46-116) 04/10/23 05:50 Total Protein 6.9 g/dL (6.4-8.2) 04/10/23 05:50 Albumin 3.2 g/dL (3.4-5.0) L 04/10/23 05:50 Globulin 3.7 g/dL (2.5-4.5) 04/10/23 05:50 Albumin/Globulin Ratio 0.9 Ratio (1.1-2.1) L 04/10/23 05:50 Specimen Type Catherized urine 04/09/23 14:37 Urine Color Yellow (YELLOW) 04/09/23 14:37 Urine Appearance Clear (CLEAR) 04/09/23 14:37 Urine pH 5.0 (5.0 - 8.0) 04/09/23 14:37 Ur Specific [place] 1.020 (1.000-1.030) 04/09/23 14:37 Urine Protein Negative (NEGATIVE) 04/09/23 14:37 Urine Glucose (UA) Negative (NEGATIVE) 04/09/23 14:37 Urine Ketones Negative (NEGATIVE) 04/09/23 14:37 Urine Blood 1+ (NEGATIVE) 04/09/23 14:37 Urine Nitrite Negative (NEGATIVE) 04/09/23 14:37 Urine Bilirubin Negative (NEGATIVE) 04/09/23 14:37 Urine Urobilinogen Normal (NORMAL) 04/09/23 14:37 Ur Leukocyte Esterase Negative (NEGATIVE) 04/09/23 14:37 Urine RBC None seen /HPF (0-3) 04/09/23 14:37 Urine WBC None seen /HPF (0-5) 04/09/23 14:37 Ur Squamous Epith Cells Rare /HPF (NEGATIVE) 04/09/23 14:37 Urine Bacteria Trace /HPF (NEGATIVE) 04/09/23 14:37 Urine Mucus Rare /HPF (NEGATIVE) 04/09/23 14:37 Ur Culture Indicated? No/not indicated 04/09/23 14:37 SARS-CoV-2 (PCR) Negative (NEGATIVE) 04/09/23 14:19 Influenza Type A (PCR) Negative (NEGATIVE) 04/09/23 14:19 Influenza Type B (PCR) Negative (NEGATIVE) 04/09/23 14:19 RSV (PCR) Negative (NEGATIVE) 04/09/23 14:19 Review of Systems Constitutional: No Symptoms Reported Eyes: Vision Change (Blurry vision) ENT: No Symptoms Reported Respiratory: No Symptoms Reported Cardiovascular: No Symptoms Reported Gastrointestinal: No Symptoms Reported Genitourinary: No Symptoms Reported Musculoskeletal: No Symptoms Reported Skin: No Symptoms Reported Neurological: No Symptoms Reported Physical Exam Vital Signs: Temperature 98.2 F Pulse Rate [Left Radial] 61 Pulse Rate 79 Respiratory Rate 18 Blood Pressure [Right Arm] 105/50 Blood Pressure [Left Arm] 131/60 Blood Pressure [Standing] 75/47 Blood Pressure [Sitting] 94/58 Blood Pressure [Lying] 110/58 Blood Pressure 183/74 O2 Sat by Pulse Oximetry 99 Oriented: Normal, Time, Person and Place Eyes: Blurred Vision Nose: Normal Respiratory: Clear Throughout Cardiovascular: Normal Palpation: Normal Tenderness: Normal Skin: Normal Musculoskeletal: Normal Psychiatric: Agitation Mood Description: Calm Affect: Angry Speech Pattern: Clear Assessment/Plan (1) Dehydration: Status: Acute (2) Chronic kidney disease: Status: Acute (3) Type 2 diabetes mellitus with hemoglobin A1c goal of less than or equal to 9.0%: Status: None (4) Hypertension with goal blood pressure less than 130/80: Status: None (5) Other vitamin B12 deficiency anemia: Status: None (6) Mild protein-calorie malnutrition (weight for age 75-89% of standard): Status: Acute Review H&P Reviewed: Yes Patient was examined?: Yes
[2023-04-10] MEDS: SNACK - Diabetic Appropriate PO SCH (20:25)
[2023-04-10] MEDS: TYLENOL 325 MG TAB PO PRN (20:25)
[2023-04-10] MEDS: CRESTOR TAB 10 MG PO SCH (20:25)
[2023-04-11] MEDS: NS 1,000 ML IV 1,000 ML IV SCH ×4 (03:38→19:03)
[2023-04-11 06:04] LABS: BASOPHILS % (AUTO) 0.7 % (0.2-1.0); EOSINOPHILS # (AUTO) 0.1 x10^3/uL (0.0-0.2); EOSINOPHILS % (AUTO) 1.5 % (0.9-2.9); HEMATOCRIT 31.9 % (36.0-47.0); HEMOGLOBIN 10.9 g/dL (12.0-16.0); LYMPHOCYTES # (AUTO) 1.4 X10^3/uL (1.3-2.9); LYMPHOCYTES % (AUTO) 20.9 % (21.0-51.0); MEAN CORPUSCULAR HEMOGLOBIN 32.2 pg (27.0-34.0); MEAN CORPUSCULAR HGB CONC 34.2 g/dL (33.0-35.0); MEAN CORPUSCULAR VOLUME 94.2 fL (80.0-100.0); MEAN PLATELET VOLUME 8.8 fL (7.4-11.0); MONOCYTES # (AUTO) 0.8 x10^3/uL (0.3-0.8); MONOCYTES % (AUTO) 11.4 % (0.0-13.0); NEUTROPHILS # (AUTO) 4.5 x10^3/uL (2.2-4.8); NEUTROPHILS % (AUTO) 65.5 % (42.0-75.0); PLATELET COUNT 185 X10^3/uL (150.0-450.0); RED BLOOD COUNT 3.38 X10^6/uL (3.5-5.4); RED CELL DISTRIBUTION WIDTH 12.6 % (11.6-16.5); WHITE BLOOD COUNT 6.9 X10^3/uL (3.6-10.0)
[2023-04-11 06:10] LABS: ALANINE AMINOTRANSFERASE 13 Units/L (12-78); ALBUMIN 2.9 g/dL (3.4-5.0); ALKALINE PHOSPHATASE 60 Units/L (46-116); ASPARTATE AMINO TRANSFERASE 17 Units/L (15-37); BLOOD UREA NITROGEN 16 mg/dL (7-18); CALCIUM 8.1 mg/dL (8.5-10.1); CARBON DIOXIDE 24.6 mmol/L (21-32); CHLORIDE 108 mmol/L (98-107); CREATININE 1.02 mg/dL (0.55-1.02); GLUCOSE 96 mg/dL (65-99); MAGNESIUM 1.2 mg/dL (2.0-2.9); POTASSIUM 4.4 mmol/L (3.5-5.1); SODIUM 141 mmol/L (136-145); TOTAL PROTEIN 6.2 g/dL (6.4-8.2); eGFR NON BLACK RACES 55 (>60)
[2023-04-11] MEDS: MAGNESIUM SULFATE 1 GRAM/100 mL PREMIX 1 G/100 ML BAG IV PRN ×2 (06:41→09:21)
[2023-04-11] MEDS: PROTONIX TAB 40 MG PO SCH (09:22)
[2023-04-11] MEDS: VASOTEC TAB 5 MG PO SCH (09:22)
[2023-04-11] MEDS: NORVASC TAB 5 MG PO SCH (09:22)
[2023-04-11] MEDS: ASPIRIN EC 81 MG PO SCH (09:22)
[2023-04-11] MEDS: ALDACTONE TAB 25 MG PO SCH ×2 (09:22→20:28)
[2023-04-11] MEDS: LEVEMIR SC SCH (09:30)
--- NOTE | 2023-04-11 17:46 | PCM.PROG ---
Progress Note Progress Note for Day of Date of Exam: 04/11/23 Subjective Subjective: Patient has had no acute problems since yesterday morning. She slept well overnight and reports she feels a little bit better this morning but is still feeling better overall. Her hydration status has normalized as her BUN and creatinine are normal this morning. Her white blood cell count is normal and she has been afebrile overnight. Her vital signs are stable. She wants to see Dr. Suggs and I informed her that he would not be here until tomorrow morning. She wants to see him for some uncertain reason so we will keep her until then since she is still feeling bad. We will continue IV hydration and treatment of her chronic medical problems. Past Medical Family Social History Allergies: Allergies No Known Drug Allergies Allergy (Unknown, Verified 03/24/23 13:12) Onset Date: 03/25/2012 Review of Systems ROS: No change since H&P Vital Signs and I&O's Vital Signs: Temperature 98.6 F Pulse Rate [Left Radial] 72 Pulse Rate 79 Respiratory Rate 18 Blood Pressure [Right Arm] 120/65 Blood Pressure [Left Arm] 131/60 Blood Pressure [Standing] 75/47 Blood Pressure [Sitting] 94/58 Blood Pressure [Lying] 110/58 Blood Pressure 183/74 O2 Sat by Pulse Oximetry 98 Intake and Output: Intake & Output 04/09/23 04/10/23 04/11/23 04/12/23 11:59 11:59 11:59 11:59 Intake Total 1666 / 1666 3110 / 3110 480 / 480 Balance 1666 / 1666 3110 / 3110 480 / 480 Physical Exam Oriented: Normal, Time, Person and Place Eyes: Blurred Vision Nose: Normal Throat: Normal Respiratory: Normal Cardiovascular: Normal Palpation: Normal Tenderness: Normal Skin: Normal Musculoskeletal: Normal Psychiatric: Agitation Mood Description: Calm Affect: Angry Speech Pattern: Clear and Appropriate Laboratory and Diagnostics Result Diagrams: 04/11/23 05:37 04/11/23 05:37 Labs: Laboratory WBC 6.9 X10^3/uL (3.6-10.0) 04/11/23 05:37 RBC 3.38 X10^6/uL (3.5-5.4) L 04/11/23 05:37 Hgb 10.9 g/dL (12.0-16.0) L 04/11/23 05:37 Hct 31.9 % (36.0-47.0) L 04/11/23 05:37 MCV 94.2 fL (80.0-100.0) 04/11/23 05:37 MCH 32.2 pg (27.0-34.0) 04/11/23 05:37 MCHC 34.2 g/dL (33.0-35.0) 04/11/23 05:37 RDW 12.6 % (11.6-16.5) 04/11/23 05:37 Plt Count 185 X10^3/uL (150.0-450.0) 04/11/23 05:37 MPV 8.8 fL (7.4-11.0) 04/11/23 05:37 Neut % (Auto) 65.5 % (42.0-75.0) 04/11/23 05:37 Lymph % (Auto) 20.9 % (21.0-51.0) L 04/11/23 05:37 [place] % (Auto) 11.4 % (0.0-13.0) 04/11/23 05:37 Eos % (Auto) 1.5 % (0.9-2.9) 04/11/23 05:37 Baso % (Auto) 0.7 % (0.2-1.0) 04/11/23 05:37 Neut # (Auto) 4.5 x10^3/uL (2.2-4.8) 04/11/23 05:37 Lymph # (Auto) 1.4 X10^3/uL (1.3-2.9) 04/11/23 05:37 [place] # (Auto) 0.8 x10^3/uL (0.3-0.8) 04/11/23 05:37 Eos # (Auto) 0.1 x10^3/uL (0.0-0.2) 04/11/23 05:37 Baso # (Auto) 0.0 X10^3/uL (0.0-0.1) 04/11/23 05:37 Absolute Nucleated RBC 0.0 /100WBC 04/11/23 05:37 Sodium 141 mmol/L (136-145) 04/11/23 05:37 Corrected Sodium TNP 04/11/23 05:37 Potassium 4.4 mmol/L (3.5-5.1) 04/11/23 05:37 Chloride 108 mmol/L (98-107) H 04/11/23 05:37 Carbon Dioxide 24.6 mmol/L (21-32) 04/11/23 05:37 BUN 16 mg/dL (7-18) 04/11/23 05:37 Creatinine 1.02 mg/dL (0.55-1.02) 04/11/23 05:37 Est GFR (MDRD) Af Amer > 60 (>60) 04/11/23 05:37 Est GFR (MDRD) Non-Af 55 (>60) L 04/11/23 05:37 Glucose 96 mg/dL (65-99) 04/11/23 05:37 POC Glucose (mg/dL) 257 mg/dL (65-99) H 04/11/23 17:37 Calcium 8.1 mg/dL (8.5-10.1) L 04/11/23 05:37 Corrected Calcium 9.0 mg/dL (8.5-10.1) 04/11/23 05:37 Magnesium 1.2 mg/dL (2.0-2.9) L 04/11/23 05:37 Total Bilirubin 0.20 mg/dL (0.2-1.0) 04/11/23 05:37 AST 17 Units/L (15-37) 04/11/23 05:37 ALT 13 Units/L (12-78) 04/11/23 05:37 Alkaline Phosphatase 60 Units/L (46-116) 04/11/23 05:37 Total Protein 6.2 g/dL (6.4-8.2) L 04/11/23 05:37 Albumin 2.9 g/dL (3.4-5.0) L 04/11/23 05:37 Globulin 3.3 g/dL (2.5-4.5) 04/11/23 05:37 Albumin/Globulin Ratio 0.9 Ratio (1.1-2.1) L 04/11/23 05:37 Vitamin B12 527 pg/mL (193-986) 04/10/23 05:50 Folate > 20.0 ng/mL (>8.6) 04/10/23 05:50 Specimen Type Catherized urine 04/09/23 14:37 Urine Color Yellow (YELLOW) 04/09/23 14:37 Urine Appearance Clear (CLEAR) 04/09/23 14:37 Urine pH 5.0 (5.0 - 8.0) 04/09/23 14:37 Ur Specific [place] 1.020 (1.000-1.030) 04/09/23 14:37 Urine Protein Negative (NEGATIVE) 04/09/23 14:37 Urine Glucose (UA) Negative (NEGATIVE) 04/09/23 14:37 Urine Ketones Negative (NEGATIVE) 04/09/23 14:37 Urine Blood 1+ (NEGATIVE) 04/09/23 14:37 Urine Nitrite Negative (NEGATIVE) 04/09/23 14:37 Urine Bilirubin Negative (NEGATIVE) 04/09/23 14:37 Urine Urobilinogen Normal (NORMAL) 04/09/23 14:37 Ur Leukocyte Esterase Negative (NEGATIVE) 04/09/23 14:37 Urine RBC None seen /HPF (0-3) 04/09/23 14:37 Urine WBC None seen /HPF (0-5) 04/09/23 14:37 Ur Squamous Epith Cells Rare /HPF (NEGATIVE) 04/09/23 14:37 Urine Bacteria Trace /HPF (NEGATIVE) 04/09/23 14:37 Urine Mucus Rare /HPF (NEGATIVE) 04/09/23 14:37 Ur Culture Indicated? No/not indicated 04/09/23 14:37 SARS-CoV-2 (PCR) Negative (NEGATIVE) 04/09/23 14:19 Influenza Type A (PCR) Negative (NEGATIVE) 04/09/23 14:19 Influenza Type B (PCR) Negative (NEGATIVE) 04/09/23 14:19 RSV (PCR) Negative (NEGATIVE) 04/09/23 14:19 Plan (1) Dehydration: Status: Resolved Plan: Continue slow IV hydration. (2) Chronic kidney disease: Status: Acute (3) Type 2 diabetes mellitus with hemoglobin A1c goal of less than or equal to 9.0%: Status: None Plan: Continue her home meds. (4) Hypertension with goal blood pressure less than 130/80: Status: None (5) Other vitamin B12 deficiency anemia: Status: None Plan: Vitamin B12 is normal so she does not need replacement at this time. (6) Mild protein-calorie malnutrition (weight for age 75-89% of standard): Status: Acute
[2023-04-11] MEDS: NovoLIN R (or HumuLIN R) SUBCUT PRN (18:11)
[2023-04-11] MEDS: CRESTOR TAB 10 MG PO SCH (20:27)
[2023-04-11] MEDS: SNACK - Diabetic Appropriate PO SCH (20:28)
[2023-04-12] MEDS: NS 1,000 ML IV 1,000 ML IV SCH ×3 (00:18→05:21)
[2023-04-12 05:30] LABS: BASOPHILS % (AUTO) 0.5 % (0.2-1.0); EOSINOPHILS # (AUTO) 0.2 x10^3/uL (0.0-0.2); EOSINOPHILS % (AUTO) 2.4 % (0.9-2.9); HEMATOCRIT 31.6 % (36.0-47.0); HEMOGLOBIN 10.9 g/dL (12.0-16.0); LYMPHOCYTES # (AUTO) 1.4 X10^3/uL (1.3-2.9); LYMPHOCYTES % (AUTO) 19.6 % (21.0-51.0); MEAN CORPUSCULAR HEMOGLOBIN 32.4 pg (27.0-34.0); MEAN CORPUSCULAR HGB CONC 34.6 g/dL (33.0-35.0); MEAN CORPUSCULAR VOLUME 93.6 fL (80.0-100.0); MEAN PLATELET VOLUME 9.3 fL (7.4-11.0); MONOCYTES # (AUTO) 0.8 x10^3/uL (0.3-0.8); MONOCYTES % (AUTO) 11.8 % (0.0-13.0); NEUTROPHILS # (AUTO) 4.6 x10^3/uL (2.2-4.8); NEUTROPHILS % (AUTO) 65.7 % (42.0-75.0); PLATELET COUNT 182 X10^3/uL (150.0-450.0); RED BLOOD COUNT 3.37 X10^6/uL (3.5-5.4); RED CELL DISTRIBUTION WIDTH 12.6 % (11.6-16.5); WHITE BLOOD COUNT 7.1 X10^3/uL (3.6-10.0)
[2023-04-12 05:44] LABS: ALANINE AMINOTRANSFERASE 13 Units/L (12-78); ALKALINE PHOSPHATASE 64 Units/L (46-116); ASPARTATE AMINO TRANSFERASE 16 Units/L (15-37); BLOOD UREA NITROGEN 13 mg/dL (7-18); CALCIUM 8.1 mg/dL (8.5-10.1); CARBON DIOXIDE 26.2 mmol/L (21-32); CHLORIDE 107 mmol/L (98-107); COR CA(FOR HYPOALB) 8.9 mg/dL (8.5-10.1); CREATININE 0.99 mg/dL (0.55-1.02); GLUCOSE 97 mg/dL (65-99); MAGNESIUM 1.6 mg/dL (2.0-2.9); POTASSIUM 4.1 mmol/L (3.5-5.1); SODIUM 141 mmol/L (136-145); TOTAL PROTEIN 6.4 g/dL (6.4-8.2); eGFR NON BLACK RACES 57 (>60)
[2023-04-12] MEDS: MAGNESIUM SULFATE 1 GRAM/100 mL PREMIX 1 G/100 ML BAG IV PRN ×2 (06:07→09:04)
[2023-04-12] MEDS: PROTONIX TAB 40 MG PO SCH (08:52)
[2023-04-12] MEDS: ALDACTONE TAB 25 MG PO SCH (08:52)
[2023-04-12] MEDS: VASOTEC TAB 5 MG PO SCH (08:52)
[2023-04-12] MEDS: ASPIRIN EC 81 MG PO SCH (08:52)
[2023-04-12] MEDS: NORVASC TAB 5 MG PO SCH (08:52)
[2023-04-12] MEDS: LEVEMIR SC SCH (08:54)
[2023-04-12] MEDS ORDERED: LOVENOX INJ 40 MG SYR SC SCH (09:00)
[2023-04-12 10:57] VITALS: BP 169/82
--- NOTE | 2023-04-15 08:00 | W.DIS.FURT ---
Summary of Discharge Discharge Summary of Date Date of Exam: 04/12/23 Admission Date Date of Admission: 04/09/23 Admission Diagnosis Patient Problems (Updated 04/11/23 @ 17:45 by SUNDAR ACUNA) Dehydration (Resolved) E86.0 Mild protein-calorie malnutrition (weight for age 75-89% of standard) (Acute) E44.1 Dementia (Acute) F03.90 Mild renal insufficiency (Acute) N28.9 Hospital Course: Patient is a 82 year old female admitted for dehydration. Over the weekend she received IVF that improved her symptoms and she reported feeling better overall on day of discharge.Her hydration status has normalized as her BUN and creatinine are normal. Her white blood cell count is normal and she has been afebrile overnight. Her vital signs are stable.Pt was discharged in stable condition. Instructed to follow up with pcp in 1 week. Vital Signs: Vital Signs (72 hours) 04/09/23 13:54 04/09/23 14:00 04/09/23 13:52 Temperature 98.3 F 98.3 F Pulse Rate 70 69 Pulse Rate [Left Radial] 70 Respiratory Rate 20 20 Blood Pressure 189/89 Blood Pressure [Right Arm] 189/89 O2 Sat by Pulse Oximetry 100 100 99 Oxygen Delivery Method Room Air Room Air 04/09/23 14:00 04/09/23 14:45 04/09/23 14:15 Temperature Pulse Rate 68 68 Pulse Rate [Left Radial] Respiratory Rate Blood Pressure 187/91 Blood Pressure [Right Arm] O2 Sat by Pulse Oximetry 99 99 Oxygen Delivery Method 04/09/23 14:30 04/09/23 14:37 04/09/23 14:37 Temperature Pulse Rate 68 73 Pulse Rate [Left Radial] Respiratory Rate Blood Pressure 187/91 Blood Pressure [Right Arm] O2 Sat by Pulse Oximetry 99 100 Oxygen Delivery Method 04/09/23 14:45 04/09/23 15:00 04/09/23 15:01 Temperature Pulse Rate 66 58 L Pulse Rate [Left Radial] Respiratory Rate Blood Pressure 138/65 Blood Pressure [Right Arm] O2 Sat by Pulse Oximetry 98 97 Oxygen Delivery Method 04/09/23 15:01 04/09/23 15:15 04/09/23 15:30 Temperature Pulse Rate 58 L 58 L Pulse Rate [Left Radial] Respiratory Rate Blood Pressure 138/81 Blood Pressure [Right Arm] O2 Sat by Pulse Oximetry 98 98 Oxygen Delivery Method 04/09/23 15:30 04/09/23 15:45 04/09/23 16:00 Temperature Pulse Rate 61 56 L Pulse Rate [Left Radial] Respiratory Rate Blood Pressure 162/68 Blood Pressure [Right Arm] O2 Sat by Pulse Oximetry 97 100 Oxygen Delivery Method 04/09/23 16:00 04/09/23 16:15 04/09/23 16:30 Temperature Pulse Rate 59 L 69 56 L Pulse Rate [Left Radial] Respiratory Rate Blood Pressure Blood Pressure [Right Arm] O2 Sat by Pulse Oximetry 99 100 98 Oxygen Delivery Method 04/09/23 16:31 04/09/23 16:31 04/09/23 16:45 Temperature Pulse Rate 58 L 61 Pulse Rate [Left Radial] Respiratory Rate Blood Pressure 155/70 Blood Pressure [Right Arm] O2 Sat by Pulse Oximetry 99 98 Oxygen Delivery Method 04/09/23 17:00 04/09/23 17:00 04/09/23 17:15 Temperature Pulse Rate 56 L 80 Pulse Rate [Left Radial] Respiratory Rate Blood Pressure 163/70 Blood Pressure [Right Arm] O2 Sat by Pulse Oximetry 98 100 Oxygen Delivery Method 04/09/23 17:30 04/09/23 17:31 04/09/23 17:31 Temperature Pulse Rate 65 65 Pulse Rate [Left Radial] Respiratory Rate Blood Pressure 183/74 Blood Pressure [Right Arm] O2 Sat by Pulse Oximetry 98 98 Oxygen Delivery Method 04/09/23 17:45 04/09/23 19:30 04/09/23 20:54 Temperature 98.2 F Pulse Rate 79 Pulse Rate [Left Radial] 73 Respiratory Rate 18 18 Blood Pressure Blood Pressure [Right Arm] 170/79 O2 Sat by Pulse Oximetry 100 99 Oxygen Delivery Method Room Air 04/09/23 19:45 04/09/23 21:54 04/09/23 23:31 Temperature 98.3 F Pulse Rate Pulse Rate [Left Radial] 63 Respiratory Rate 18 18 Blood Pressure Blood Pressure [Right Arm] 130/70 O2 Sat by Pulse Oximetry 97 Oxygen Delivery Method Room Air Room Air 04/10/23 03:32 04/10/23 07:00 04/10/23 08:00 Temperature 98.2 F 97.8 F Pulse Rate Pulse Rate [Left Radial] 63 59 L Respiratory Rate 18 18 Blood Pressure Blood Pressure [Right Arm] 179/77 131/68 O2 Sat by Pulse Oximetry 95 99 Oxygen Delivery Method Room Air Room Air Room Air 04/10/23 12:00 04/10/23 16:00 04/10/23 19:00 Temperature 98.1 F 98.2 F Pulse Rate Pulse Rate [Left Radial] 65 61 Respiratory Rate 18 18 Blood Pressure Blood Pressure [Right Arm] 125/64 105/50 O2 Sat by Pulse Oximetry 97 99 Oxygen Delivery Method Room Air Room Air Room Air 04/10/23 20:00 04/10/23 20:25 04/10/23 21:24 Temperature 98 F Pulse Rate Pulse Rate [Left Radial] 65 Respiratory Rate 18 18 14 Blood Pressure Blood Pressure [Right Arm] 150/68 O2 Sat by Pulse Oximetry 100 Oxygen Delivery Method Room Air 04/11/23 00:00 04/11/23 04:00 04/11/23 07:00 Temperature 97.4 F L 98 F Pulse Rate Pulse Rate [Left Radial] 62 67 Respiratory Rate 18 20 Blood Pressure Blood Pressure [Right Arm] 138/65 159/75 O2 Sat by Pulse Oximetry 97 98 Oxygen Delivery Method Room Air Room Air Room Air 04/11/23 07:58 04/11/23 12:00 04/11/23 16:00 Temperature 98.6 F 98.6 F 98.6 F Pulse Rate Pulse Rate [Left Radial] 69 72 73 Respiratory Rate 18 18 18 Blood Pressure Blood Pressure [Right Arm] 136/72 120/65 118/60 O2 Sat by Pulse Oximetry 97 98 73 L Oxygen Delivery Method Room Air Room Air Room Air 04/11/23 20:00 04/11/23 16:00 04/11/23 19:00 Temperature 97.9 F Pulse Rate Pulse Rate [Left Radial] 65 Respiratory Rate 18 Blood Pressure Blood Pressure [Right Arm] 165/74 O2 Sat by Pulse Oximetry 100 97 Oxygen Delivery Method Room Air Room Air Room Air 04/12/23 00:00 04/12/23 04:00 04/12/23 07:00 Temperature 98.1 F 98 F Pulse Rate Pulse Rate [Left Radial] 60 64 Respiratory Rate 20 18 Blood Pressure Blood Pressure [Right Arm] 168/67 163/70 O2 Sat by Pulse Oximetry 98 98 Oxygen Delivery Method Room Air Room Air Room Air Labs: Laboratory Last Values WBC 7.1 X10^3/uL (3.6-10.0) 04/12/23 04:35 RBC 3.37 X10^6/uL (3.5-5.4) L 04/12/23 04:35 Hgb 10.9 g/dL (12.0-16.0) L 04/12/23 04:35 Hct 31.6 % (36.0-47.0) L 04/12/23 04:35 MCV 93.6 fL (80.0-100.0) 04/12/23 04:35 MCH 32.4 pg (27.0-34.0) 04/12/23 04:35 MCHC 34.6 g/dL (33.0-35.0) 04/12/23 04:35 RDW 12.6 % (11.6-16.5) 04/12/23 04:35 Plt Count 182 X10^3/uL (150.0-450.0) 04/12/23 04:35 MPV 9.3 fL (7.4-11.0) 04/12/23 04:35 Neut % (Auto) 65.7 % (42.0-75.0) 04/12/23 04:35 Lymph % (Auto) 19.6 % (21.0-51.0) L 04/12/23 04:35 [place] % (Auto) 11.8 % (0.0-13.0) 04/12/23 04:35 Eos % (Auto) 2.4 % (0.9-2.9) 04/12/23 04:35 Baso % (Auto) 0.5 % (0.2-1.0) 04/12/23 04:35 Neut # (Auto) 4.6 x10^3/uL (2.2-4.8) 04/12/23 04:35 Lymph # (Auto) 1.4 X10^3/uL (1.3-2.9) 04/12/23 04:35 [place] # (Auto) 0.8 x10^3/uL (0.3-0.8) 04/12/23 04:35 Eos # (Auto) 0.2 x10^3/uL (0.0-0.2) 04/12/23 04:35 Baso # (Auto) 0.0 X10^3/uL (0.0-0.1) 04/12/23 04:35 Absolute Nucleated RBC 0.1 /100WBC 04/12/23 04:35 Sodium 141 mmol/L (136-145) 04/12/23 04:35 Corrected Sodium TNP 04/12/23 04:35 Potassium 4.1 mmol/L (3.5-5.1) 04/12/23 04:35 Chloride 107 mmol/L (98-107) 04/12/23 04:35 Carbon Dioxide 26.2 mmol/L (21-32) 04/12/23 04:35 BUN 13 mg/dL (7-18) 04/12/23 04:35 Creatinine 0.99 mg/dL (0.55-1.02) 04/12/23 04:35 Est GFR (MDRD) Af Amer > 60 (>60) 04/12/23 04:35 Est GFR (MDRD) Non-Af 57 (>60) L 04/12/23 04:35 Glucose 97 mg/dL (65-99) 04/12/23 04:35 POC Glucose (mg/dL) 102 mg/dL (65-99) H 04/12/23 05:13 Calcium 8.1 mg/dL (8.5-10.1) L 04/12/23 04:35 Corrected Calcium 8.9 mg/dL (8.5-10.1) 04/12/23 04:35 Magnesium 1.6 mg/dL (2.0-2.9) L 04/12/23 04:35 Total Bilirubin 0.30 mg/dL (0.2-1.0) 04/12/23 04:35 AST 16 Units/L (15-37) 04/12/23 04:35 ALT 13 Units/L (12-78) 04/12/23 04:35 Alkaline Phosphatase 64 Units/L (46-116) 04/12/23 04:35 Total Protein 6.4 g/dL (6.4-8.2) 04/12/23 04:35 Albumin 3.0 g/dL (3.4-5.0) L 04/12/23 04:35 Globulin 3.4 g/dL (2.5-4.5) 04/12/23 04:35 Albumin/Globulin Ratio 0.9 Ratio (1.1-2.1) L 04/12/23 04:35 Vitamin B12 527 pg/mL (193-986) 04/10/23 05:50 Folate > 20.0 ng/mL (>8.6) 04/10/23 05:50 Specimen Type Catherized urine 04/09/23 14:37 Urine Color Yellow (YELLOW) 04/09/23 14:37 Urine Appearance Clear (CLEAR) 04/09/23 14:37 Urine pH 5.0 (5.0 - 8.0) 04/09/23 14:37 Ur Specific Strong 1.020 (1.000-1.030) 04/09/23 14:37 Urine Protein Negative (NEGATIVE) 04/09/23 14:37 Urine Glucose (UA) Negative (NEGATIVE) 04/09/23 14:37 Urine Ketones Negative (NEGATIVE) 04/09/23 14:37 Urine Blood 1+ (NEGATIVE) 04/09/23 14:37 Urine Nitrite Negative (NEGATIVE) 04/09/23 14:37 Urine Bilirubin Negative (NEGATIVE) 04/09/23 14:37 Urine Urobilinogen Normal (NORMAL) 04/09/23 14:37 Ur Leukocyte Esterase Negative (NEGATIVE) 04/09/23 14:37 Urine RBC None seen /HPF (0-3) 04/09/23 14:37 Urine WBC None seen /HPF (0-5) 04/09/23 14:37 Ur Squamous Epith Cells Rare /HPF (NEGATIVE) 04/09/23 14:37 Urine Bacteria Trace /HPF (NEGATIVE) 04/09/23 14:37 Urine Mucus Rare /HPF (NEGATIVE) 04/09/23 14:37 Ur Culture Indicated? No/not indicated 04/09/23 14:37 SARS-CoV-2 (PCR) Negative (NEGATIVE) 04/09/23 14:19 Influenza Type A (PCR) Negative (NEGATIVE) 04/09/23 14:19 Influenza Type B (PCR) Negative (NEGATIVE) 04/09/23 14:19 RSV (PCR) Negative (NEGATIVE) 04/09/23 14:19 Reason For Visit: DEHYDRATION, PROTEIN-CALORIE MALNUTRITION, Discharge Date Discharge Date: 04/12/23 Discharge Diagnosis All Active Problems (Updated 04/11/23 @ 17:45 by SUNDAR ACUNA) Mild protein-calorie malnutrition (weight for age 75-89% of standard) (Acute) Dementia (Acute) Mild renal insufficiency (Acute) Vitamin D deficiency (Acute) Mixed hyperlipidemia (Acute) Chronic kidney disease (Acute) Plan of Treatment: Continue with present treatment and follow up plan. Pt is to keep follow up appointment as instructed and take medications as ordered. Discharge Medications Discharge Medications: No Known Drug Allergies Allergy (Unknown, Verified 03/24/23 13:12) CONTINUE taking the following medications amlodipine 5 mg tablet 1 tab PO QDAY 04/09/23 [History] aspirin 81 mg tablet,delayed release 81 mg PO QDAY 04/09/23 [History] enalapril maleate 5 mg tablet 1 tab PO QDAY 04/09/23 [History] insulin detemir U-100 100 unit/mL (3 mL) subcutaneous pen 32 unit subcut HS 04/09/23 [History] ondansetron HCl 4 mg tablet 4 mg PO DAILY PRN 04/09/23 [History] pantoprazole 40 mg tablet,delayed release 1 tab PO QDAY 04/09/23 [History] rosuvastatin 10 mg tablet 1 tab PO QPM 04/09/23 [History] sitagliptin phosphate 100 mg tablet (Januvia) 1 tab PO QDAY 04/09/23 [History] spironolactone 25 mg tablet 1 tab PO BID 04/09/23 [History] Discharge Disposition Discharge Disposition: Home Discharge Condition: Stable Discharge Plan Discharge Plan Hospital Course: Patient is a 82 year old female admitted for dehydration. Over the weekend she received IVF that improved her symptoms and she reported feeling better overall on day of discharge.Her hydration status has normalized as her BUN and creatinine are normal. Her white blood cell count is normal and she has been afebrile overnight. Her vital signs are stable.Pt was discharged in stable condition. Instructed to follow up with pcp in 1 week. Patient Disposition: 01 HOME, SELF-CARE Condition: Stable Health Concerns: Post Hospitalization: new medications and changes needed to prevent readmission or further decline. Pt educated and given instructions on all concerns. Care Plan Goals: Problem: Fluid Volume Deficit Goal: Maintain/Improved Adequate hydration. Instructions: Follow provided instructions. Follow up with primary physician as directed. Contact primary care physician or report to the closest Emergency Room if condition worsens. Plan of Treatment: Continue with present treatment and follow up plan. Pt is to keep follow up appointment as instructed and take medications as ordered. Prescriptions: Continued cholecalciferol (vitamin D3) 10 mcg (400 unit) tablet 10 mcg PO QDAY Qty: 90 1RF Rx Instructions: FreeTextSi tab Oral daily insulin aspart U-100 [Novolog FlexPen U-100 Insulin] 100 unit/mL (3 mL) insulin pen 1 unit subcut USEASDIRECTD MDD sliding scale PRN (Reason: diabetes) 90 Days Qty: 15 1RF Rx Instructions: FreeTextSi (one) Unit use as directed per sliding scale; Note: Dispense box. use as directed per sliding scale - no more than 14 units per dose; Refills: 2; Provider: Es Saez Levemir FlexTouch U100 Insulin 100 unit/mL (3 mL) insulin pen 32 unit subcut QDAY 30 Days Qty: 9.6 1RF Rx Instructions: FreeTextSi Unit daily; Note: Dispense 1 box; Refills: 3; Provider: Es Saez (DME) NovoFine Plus 32 gauge x 1/6" needle See Rx Instructions .Route Qty: 100 1RF Rx Instructions: As directed enalapril maleate 5 mg tablet 1 tab PO QDAY amlodipine 5 mg tablet 1 tab PO QDAY spironolactone 25 mg tablet 1 tab PO BID pantoprazole 40 mg tablet,delayed release (DR/EC) 1 tab PO QDAY rosuvastatin 10 mg tablet 1 tab PO QPM insulin detemir U-100 100 unit/mL (3 mL) insulin pen 32 unit SUBCUT HS Label Comments: [NO ORIGINAL SIG] Januvia 100 mg tablet 1 tab PO QDAY ondansetron HCl 4 mg tablet 4 mg PO DAILY PRN aspirin 81 mg Tablet,Delayed Release (Dr/Ec) 81 mg PO QDAY Orders to Discharge Patient Discharge Orders: Discharge (Routine); Ordered 04/12/23 Ordered By: Se Suggs Follow ups/Referrals Follow ups/Referrals: Se Suggs [Primary Care Provider] - 04/19/23 3:00 pm Instructions Instructions: Diabetes Mellitus and Foot Care, Protein-Energy Malnutrition, Chronic Kidney Disease, Adult, [id number], Dehydration, Elderly, [id number] Stand Alone Forms: Excuse From Work or School
== END 2023-04-12 14:50 | disposition home or self-care (01) ==
LOC: MED/SURG 13:45 → ER 13:45 → MED/SURG 19:28
PROVIDERS: ADMIT Family Medicine; ATTEND Family Medicine
DX: E11.65 Type 2 diabetes mellitus with hyperglycemia; E78.2 Mixed hyperlipidemia; R53.1 Weakness; K21.9 Gastro-esophageal reflux disease without esophagitis; D51.8 Other vitamin B12 deficiency anemias; E86.0 Dehydration; N18.9 Chronic kidney disease, unspecified; I10 Essential (primary) hypertension; Z20.822 Contact with and (suspected) exposure to COVID-19